=== PATIENT | female | born 1945 | race African-American/Black ===

== ENCOUNTER → 2016-05-07 | Outpatient (CLI) | payer MEDICARE, MEDICAID ==
[2016-05-07 13:25] LABS: BASOPHILS % (AUTO) 1.6 % (0.0-2.0); EOSINOPHILS % (AUTO) 2.1 % (0.0-3.0); LYMPHOCYTES % (AUTO) 25.8 % (20.0-45.0); MEAN CORPUSCULAR HEMOGLOBIN 32.7 PG (27.0-31.0); MEAN CORPUSCULAR HGB CONC 32.3 G/DL (32.0-36.0); MEAN CORPUSCULAR VOLUME 101 FL (80-99); MEAN PLATELET VOLUME 6.7 FL (6.5-10.1); MONOCYTES % (AUTO) 9.9 % (1.0-10.0); NEUTROPHILS % (AUTO) 60.6 % (45.0-75.0); PLATELET COUNT 329 K/UL (150-450); RED BLOOD COUNT 4.22 M/UL (4.20-5.40); RED CELL DISTRIBUTION WIDTH 11.3 % (11.6-14.8); WHITE BLOOD COUNT 4.3 K/UL (4.8-10.8)
[2016-05-07 13:56] LABS: HEMOLYSIS 6; IRON 106 ug/dL (37-145); TOTAL IRON BINDING CAPACITY 294 ug/dL (250-400)
[2016-05-07 13:58] LABS: ALANINE AMINOTRANSFERASE 20 U/L (3-33); ALBUMIN/GLOBULIN RATIO 1.1 (1.0-2.7); ANION GAP 15 (5-15); ASPARTATE AMINO TRANSFERASE 23 U/L (5-40); CALCIUM 9.6 mg/dL (8.6-10.2); CARBON DIOXIDE 25 mEQ/L (20-30); CHLORIDE 101 mEQ/L (98-107); CHOLESTEROL 206 mg/dL (< 200); CHOLESTEROL/HDL RATIO 5.3 (3.3-4.4); CREATININE 0.9 mg/dL (0.5-0.9); CRP QUANT 0.7 mg/dL (< 0.5); GLOMERULAR FILTRATION RATE > 60 mL/min (>60); LDL CHOLESTEROL (CALC.) 135 mg/dL (60-99); POTASSIUM 4.1 mEQ/L (3.4-4.9); SODIUM 141 mEQ/L (135-145); TOTAL PROTEIN 8.1 g/dL (6.6-8.7)
[2016-05-07 14:08] LABS: THYROID STIMULATING HORMONE 0.928 uIU/mL (0.300-4.500)
[2016-05-08 18:10] LABS: ANTI-NUCLEAR ANTIBODY SCREEN Negative (Negative)
[2016-05-09 18:08] LABS: ALDOLASE 5.1 U/L (3.3-10.3)
[2016-05-10 14:09] LABS: VITAMIN D 25-OH TOTAL 14 ng/mL (.)
== END | disposition home or self-care (01) ==
LOC: LAB 12:35
PROVIDERS: ATTEND Internal Medicine Rheumatology
DX: E11.9 Type 2 diabetes mellitus without complications (principal); I10 Essential (primary) hypertension; M25.50 Pain in unspecified joint
CPT/HCPCS: 36415; 80053; 80061; 82085; 82306; 82550; 83036; 83540; 83550; 84443; 85025; 86039; 86140

== ENCOUNTER → 2016-06-25 | Outpatient (CLI) | payer MEDICARE, MEDICAID ==
[2016-06-25 12:34] LABS: BASOPHILS % (AUTO) 2.1 % (0.0-2.0); EOSINOPHILS % (AUTO) 1.5 % (0.0-3.0); LYMPHOCYTES % (AUTO) 25.1 % (20.0-45.0); MEAN CORPUSCULAR HEMOGLOBIN 33.7 PG (27.0-31.0); MEAN CORPUSCULAR HGB CONC 32.7 G/DL (32.0-36.0); MEAN CORPUSCULAR VOLUME 103 FL (80-99); MEAN PLATELET VOLUME 7.3 FL (6.5-10.1); MONOCYTES % (AUTO) 6.9 % (1.0-10.0); NEUTROPHILS % (AUTO) 64.5 % (45.0-75.0); PLATELET COUNT 227 K/UL (150-450); RED BLOOD COUNT 4.23 M/UL (4.20-5.40); RED CELL DISTRIBUTION WIDTH 11.6 % (11.6-14.8); WHITE BLOOD COUNT 4.9 K/UL (4.8-10.8)
[2016-06-25 12:44] LABS: ALANINE AMINOTRANSFERASE 19 U/L (3-33); ALBUMIN/GLOBULIN RATIO 1.2 (1.0-2.7); ANION GAP 18 (5-15); ASPARTATE AMINO TRANSFERASE 20 U/L (5-40); CALCIUM 9.6 mg/dL (8.6-10.2); CARBON DIOXIDE 23 mEQ/L (20-30); CHLORIDE 98 mEQ/L (98-107); CHOLESTEROL 185 mg/dL (< 200); CREATININE 0.8 mg/dL (0.5-0.9); CRP QUANT 0.5 mg/dL (< 0.5); GLOMERULAR FILTRATION RATE > 60 mL/min (>60); LDL CHOLESTEROL (CALC.) 102 mg/dL (60-99); POTASSIUM 4.3 mEQ/L (3.4-4.9); SODIUM 139 mEQ/L (135-145); TOTAL PROTEIN 7.7 g/dL (6.6-8.7)
[2016-06-25 12:45] LABS: HEMOLYSIS 47; IRON 97 ug/dL (37-145); TOTAL IRON BINDING CAPACITY 338 ug/dL (250-400)
[2016-06-25 12:55] LABS: FERRITIN 233 ng/mL (13-150)
[2016-06-25 13:18] LABS: HEMOGLOBIN A1C 4.9 % (< 6.0)
[2016-06-25 13:41] LABS: ERYTHROCYTE SEDIMENTATION RATE 28 MM/HR (0-30)
[2016-06-26 18:14] LABS: ANTI-NUCLEAR ANTIBODY SCREEN Negative (Negative)
[2016-06-30 09:27] LABS: ALDOLASE 6.8 U/L (3.3-10.3); VITAMIN D 25-OH TOTAL 15 ng/mL (.)
== END | disposition home or self-care (01) ==
LOC: LAB 11:27
PROVIDERS: ATTEND Internal Medicine Rheumatology
DX: I95.9 Hypotension, unspecified (principal); J44.9 Chronic obstructive pulmonary disease, unspecified; E11.9 Type 2 diabetes mellitus without complications; M19.90 Unspecified osteoarthritis, unspecified site
CPT/HCPCS: 36415; 80053; 80061; 82085; 82306; 82550; 82728; 83036; 83540; 83550; 84443; 85025; 85651; 86039; 86140

== ENCOUNTER → 2016-07-14 | Outpatient (CLI) | payer MEDICARE, MEDICAID ==
[~2016-07-14] VITALS: Ht 160 cm; Wt 79.4 kg
[~2016-07-14] MED LIST: Adenosine Inj IVP ONE
--- NOTE | 2016-07-14 15:28 | Diagnostic Imaging Report ---
Indications: 70-year-old female inpatient presents with chest pain, coronary artery disease Technique: The examination was supervised by Dr. Kohler. Baseline electrocardiogram was recorded. Adenosine was administered the patient intravenously per usual protocol. Continuous electrocardiography, heart rate, blood pressure monitoring performed. Immediate SPECT imaging of the left ventricular myocardium was performed in multiple planes with the patient in supine position, following intravenous administration of 32.2 mCi 99 M technetium-sestaMIBI. Cinegraphic images were generated for wall motion analysis. Left ventricular ejection fraction was calculated. Imaging at rest performed. Findings: Comparison: None. Stress images demonstrate left ventricular myocardial perfusion to be intact. No areas of abnormally decreased or absent perfusion are demonstrated. Cinegraphic images demonstrate no areas of wall motion abnormality. Ejection fraction is estimated at 65%. The patient developed chest pain and shortness of breath but no acute electrocardiographic changes during adenosine infusion. Supervising senior database engineer's conclusions are that clinical response to pharmacologic stress simulation is ischemic while electrocardiographic response is nonischemic. IMPRESSION: Negative stress-only left ventricular myocardial perfusion scan. This partially correlates with supervising senior database engineer's conclusions.
--- NOTE | 2016-07-15 16:15 | Cardiology Report ---
APPROVED REPORT EXAM: Two-dimensional and M-mode echocardiogram with Doppler and color Doppler. INDICATION CAD M-Mode DIMENSIONS IVSd0.9 (0.7-1.1cm)Left Atrium (MM)3.0 (1.6-4.0cm) LVDd3.7 (3.5-5.6cm)Aortic Root2.3 (2.0-3.7cm) PWd0.7 (0.7-1.1cm)Aortic Cusp Exc.1.6 (1.5-2.0cm) LVDs2.9 (2.5-4.0cm) PWs0.8 cm Technically difficult study due to poor acoustic windows. Normal left ventricular chamber size. Mildl global left ventricular hypokinesis. Thinning and akinesis of mid posterior wall . Mid anterior wall dyskinesis. Left ventricular ejection fraction estimated to be 45-50%. No evidence of left ventricular hypertrophy. No evidence of pericardial fat or effusion. Right cardiac chamber sizes are within normal limits. Mild left atrial enlargement by 2D. Focal aortic valve sclerosis with adequate cusp excursion Thickened mitral valve leaflets with normal excursion. Mild mitral annulus and aortic root calcification. Pulmonic valve not well visualized. Normal tricuspid valve structure. IVC is normal in size with physiologic collapse. A color flow and spectral Doppler study was performed and revealed: No aortic regurgitation. No mitral regurgitation. Left ventricular diastolic dysfunction grade 1. No tricuspid regurgitation. Tricuspid systolic velocities suggests peak right ventricular systolic pressure of 25 mmHg
== END | disposition home or self-care (01) ==
LOC: CAR 09:02
DX: R07.9 Chest pain, unspecified (principal); I25.10 Atherosclerotic heart disease of native coronary artery without angina pectoris
CPT/HCPCS: 78452; 93017; 93306; A4641; J0153

== ENCOUNTER 2016-09-09 13:10 | Outpatient (CLI) | payer MEDICARE, MEDICAID ==
[2016-09-09 13:49] LABS: BASOPHILS % (AUTO) 1.8 % (0.0-2.0); EOSINOPHILS % (AUTO) 1.2 % (0.0-3.0); LYMPHOCYTES % (AUTO) 32.6 % (20.0-45.0); MEAN CORPUSCULAR HEMOGLOBIN 33.7 PG (27.0-31.0); MEAN CORPUSCULAR HGB CONC 33.1 G/DL (32.0-36.0); MEAN CORPUSCULAR VOLUME 102 FL (80-99); MEAN PLATELET VOLUME 6.1 FL (6.5-10.1); MONOCYTES % (AUTO) 9.3 % (1.0-10.0); NEUTROPHILS % (AUTO) 55.1 % (45.0-75.0); PLATELET COUNT 295 K/UL (150-450); RED BLOOD COUNT 4.02 M/UL (4.20-5.40); RED CELL DISTRIBUTION WIDTH 11.2 % (11.6-14.8); WHITE BLOOD COUNT 4.4 K/UL (4.8-10.8)
[2016-09-09 14:01] LABS: ALANINE AMINOTRANSFERASE 20 U/L (3-33); ALBUMIN/GLOBULIN RATIO 1.3 (1.0-2.7); AMYLASE 76 U/L (10-110); ANION GAP 15 (5-15); ASPARTATE AMINO TRANSFERASE 24 U/L (5-40); CALCIUM 9.6 mg/dL (8.6-10.2); CARBON DIOXIDE 23 mEQ/L (20-30); CHLORIDE 100 mEQ/L (98-107); CREATININE 0.8 mg/dL (0.5-0.9); CRP QUANT 0.7 mg/dL (< 0.5); HEMOLYSIS 6; POTASSIUM 3.9 mEQ/L (3.4-4.9); SODIUM 138 mEQ/L (135-145); TOTAL PROTEIN 7.6 g/dL (6.6-8.7)
[2016-09-09 14:59] LABS: ERYTHROCYTE SEDIMENTATION RATE 40 MM/HR (0-30)
== END 2016-09-09 14:10 | disposition home or self-care (01) ==
LOC: LAB 13:10
DX: K57.30 Diverticulosis of large intestine without perforation or abscess without bleeding (principal); R10.13 Epigastric pain; D89.89 Other specified disorders involving the immune mechanism, not elsewhere classified
CPT/HCPCS: 36415; 80053; 82150; 85025; 85651; 86140

== ENCOUNTER → 2016-11-02 | Outpatient (CLI) | payer MEDICARE, MEDICAID ==
--- NOTE | 2016-11-02 12:43 | Diagnostic Imaging Report ---
Indication: Pain Findings: 3 views of the right shoulder were obtained. No acute fractures, malalignment, erosions or periostitis are identified. Bone mineralization is low. Soft tissues are unremarkable. Impression: No acute injury
--- NOTE | 2016-11-02 15:13 | Diagnostic Imaging Report ---
Indication: Neck pain Technique: MRI examination of the cervical spine was performed in a 1.5 Sakina magnet. Sequences obtained include sagittal and axial T1 and T2 fast spin echo, and sagittal STIR. No IV gadolinium was given Comparison: none Findings: There is some motion artifact present. Bone marrow signal is normal. There is no malalignment. No ligamentous abnormalities or soft tissue swelling is identified. No abnormal fluid collections are seen. The spinal cord appears normal. There is no evidence of cord edema or myelomalacia. No Chiari malformation is identified. Narrowing and loss of T2 signal from the central aspects of the intervertebral discs are noted as all of the cervical spine levels from C2-3 through C7-T1. Minimal concentric disc bulges are noted at C3-4, C4-5 and C6-7. Minimal endplate spurs are also noted. No central or neural foraminal stenosis is identified. Impression: Somewhat limited exam due to motion. No evidence of acute injury. Mild degenerative disc disease as described above. No neural impingement, canal or neural foraminal stenosis identified. Normal appearance of the cord.
--- NOTE | 2016-11-02 15:18 | Diagnostic Imaging Report ---
Indication: Right upper arm pain. Technique: The right upper arm (phbbo-sd-mpas included the area of pain which was several centimeters above the elbow to the shoulder) examination was performed in the area of pain in a 1.5 Sakina magnet. Pulse sequences obtained without gadolinium and include coronal and axial T1 fast spin-echo and STIR. Note: Because of patient size, the standard extremity coil could not be used. The torso coil was used instead. This is not optimum as there is diminished aasciw-bm-mtehk ratio and resolution. Comparison: None Findings: The study was limited nature as the patient had severe pain in the arm and could not continue with the examination. As obtained, no bone marrow signal abnormalities are identified. There is the suggestion of a joint effusion within the joint. There is a suggestion of fluid in the subacromial bursa as well. The study was not obtained in such a fashion that rotator cuff pathology could be evaluated or excluded on this exam. If there is clinical concern for this, suggest obtaining MRI of the right shoulder. The subcutaneous fat and the major muscular structures within the upper arm appear unremarkable. Impression: Negative examination area of pain. Incidental subacromial and glenohumeral fluid. This is not adequately evaluated on the current exam. Further evaluation with an MRI of the right shoulder could be obtained as warranted clinically.
== END | disposition home or self-care (01) ==
LOC: MRI 09:58
DX: M79.621 Pain in right upper arm (principal); M25.511 Pain in right shoulder; M50.30 Other cervical disc degeneration, unspecified cervical region; G62.9 Polyneuropathy, unspecified
CPT/HCPCS: 72141

== ENCOUNTER → 2017-01-08 | Outpatient (CLI) | payer MEDICARE, MEDICAID ==
[2017-01-08 12:26] LABS: EOSINOPHILS % (AUTO) 1.9 % (0.0-3.0); LYMPHOCYTES % (AUTO) 27.6 % (20.0-45.0); MEAN CORPUSCULAR HEMOGLOBIN 33.5 PG (27.0-31.0); MEAN CORPUSCULAR HGB CONC 32.6 G/DL (32.0-36.0); MEAN CORPUSCULAR VOLUME 103 FL (80-99); MEAN PLATELET VOLUME 6.1 FL (6.5-10.1); MONOCYTES % (AUTO) 10.3 % (1.0-10.0); NEUTROPHILS % (AUTO) 59.2 % (45.0-75.0); PLATELET COUNT 273 K/UL (150-450); RED BLOOD COUNT 4.34 M/UL (4.20-5.40); RED CELL DISTRIBUTION WIDTH 10.9 % (11.6-14.8); WHITE BLOOD COUNT 4.9 K/UL (4.8-10.8)
[2017-01-08 13:16] LABS: ALANINE AMINOTRANSFERASE 17 U/L (3-33); ALBUMIN/GLOBULIN RATIO 1.3 (1.0-2.7); ANION GAP 13 (5-15); ASPARTATE AMINO TRANSFERASE 22 U/L (5-40); CALCIUM 9.5 mg/dL (8.6-10.2); CARBON DIOXIDE 27 mEQ/L (20-30); CHLORIDE 102 mEQ/L (98-107); CREATININE 0.7 mg/dL (0.5-0.9); HEMOLYSIS 48; POTASSIUM 4.5 mEQ/L (3.4-4.9); SODIUM 142 mEQ/L (135-145); TOTAL PROTEIN 7.4 g/dL (6.6-8.7)
--- NOTE | 2017-01-08 16:34 | Diagnostic Imaging Report ---
Clinical Indication: SOB, cough Technique: Spiral acquisitions obtained through the chest. No IV contrast utilized, per referring physician request. Multiplanar reconstructions generated. Total dose length product 766 mGycm. CTDIvol(s) 23 mGy. Dose reduction achieved using automated exposure control Comparison: None Findings:Lungs and pleural spaces are clear. The proximal airways are clear. The heart size is normal. No effusion. No mediastinal or hilar mass or adenopathy. The included portions of the thyroid demonstrates homogeneous thyromegaly, with an upper pole calcification on the left. No axillary or chest wall mass or adenopathy. The esophagus is unremarkable. The bones are unremarkable except for mild degenerative spondylosis. The included upper abdominal anatomy is remarkable for the presence of a cyst in segment 2 of the liver. There is a subcentimeter low-attenuation lesion also seen in segment 2 which is too small to characterize. These are both evident on a prior on 10/06/14 CT scan. There are cholecystectomy clips. The pancreas is somewhat fatty replaced and atrophic. Impression: No acute pulmonary or pleural process Thyromegaly, nonspecific. Calcification noted in the upper pole Incidental abdominal findings of pancreatic atrophy, prior cholecystectomy, liver cysts The CT scanner at [facility] is accredited by the [employer] and the scans are performed using protocols designed to limit radiation exposure to as low as reasonably achievable to attain images of sufficient resolution adequate for diagnostic evaluation.
[2017-01-11 15:09] LABS: ANTI-NUCLEAR ANTIBODY SCREEN Negative (Negative)
[2017-01-11 18:20] LABS: VITAMIN D 25-OH TOTAL 16 ng/mL (.)
== END | disposition home or self-care (01) ==
LOC: LAB 11:31
DX: G62.9 Polyneuropathy, unspecified (principal); R06.02 Shortness of breath; R05 Cough; R06.2 Wheezing; E01.0 Iodine-deficiency related diffuse (endemic) goiter; Z90.49 Acquired absence of other specified parts of digestive tract; K76.89 Other specified diseases of liver; K86.89 Other specified diseases of pancreas
CPT/HCPCS: 36415; 71250; 80053; 82306; 82607; 84443; 85025; 86039; 86592

== ENCOUNTER 2017-03-22 10:07 | Outpatient (CLI) | payer MEDICARE, MEDICAID ==
--- NOTE | 2017-03-22 12:18 | Diagnostic Imaging Report ---
Indication: Abdominal pain, nausea Technique: Camilo-scale and duplex images of the upper abdomen were obtained Comparison: 09/17/2014 Findings: Gallbladder is surgically absent. Common bile duct measures 11 mm in diameter, previously 9. No intrahepatic biliary ductal dilatation. Liver demonstrates diffusely increased echogenicity, consistent with diffuse hepatocellular disease, most likely fatty change. Portal vein and hepatic veins are patent. Pancreas is unremarkable. Spleen is unremarkable. Left kidney measures 9.7 cm in length. Right kidney measures 9 cm length. Both kidneys demonstrate normal echogenicity. There is no hydronephrosis. No focal abnormality . Non-aneurysmal abdominal aorta . No other significant interim change Impression: Status post cholecystectomy. Ectatic common bile duct, slightly increased in caliber from prior 2015 exam, most likely related to age and postcholecystectomy state. Downstream obstruction not completely excludable, however, and correlation with liver function tests is recommended Liver demonstrates diffusely increased echogenicity, consistent with diffuse hepatocellular disease, most likely fatty change.
== END 2017-03-22 12:07 | disposition home or self-care (01) ==
LOC: ULS 10:07
DX: R10.9 Unspecified abdominal pain (principal); R11.0 Nausea; Z90.49 Acquired absence of other specified parts of digestive tract
CPT/HCPCS: 76700

== ENCOUNTER 2017-04-21 15:50 | Outpatient (CLI) | payer MEDICARE, MEDICAID ==
[2017-04-21 16:23] LABS: BASOPHILS % (AUTO) 1.4 % (0.0-2.0); EOSINOPHILS % (AUTO) 0.7 % (0.0-3.0); HEMATOCRIT 48.4 % (37.0-47.0); LYMPHOCYTES % (AUTO) 29.8 % (20.0-45.0); MEAN CORPUSCULAR VOLUME 103 FL (80-99); MONOCYTES % (AUTO) 7.9 % (1.0-10.0); NEUTROPHILS % (AUTO) 60.1 % (45.0-75.0); PLATELET COUNT 283 K/UL (150-450); RED BLOOD COUNT 4.72 M/UL (4.20-5.40); RED CELL DISTRIBUTION WIDTH 11.2 % (11.6-14.8); WHITE BLOOD COUNT 5.8 K/UL (4.8-10.8)
[2017-04-21 16:48] LABS: ALANINE AMINOTRANSFERASE 24 U/L (12-78); ALBUMIN 4.1 G/DL (3.4-5.0); ALBUMIN/GLOBULIN RATIO 0.9 (1.0-2.7); ALKALINE PHOSPHATASE 111 U/L (46-116); ANION GAP 9 mmol/L (5-15); ASPARTATE AMINO TRANSFERASE 23 U/L (15-37); BILIRUBIN,TOTAL 0.9 MG/DL (0.2-1.0); BLOOD UREA NITROGEN 19 mg/dL (7-18); CALCIUM 8.7 MG/DL (8.5-10.1); CARBON DIOXIDE 24 MMOL/L (21-32); CHLORIDE 110 MMOL/L (98-107); CHOLESTEROL 214 MG/DL (< 200); CREATININE 0.9 MG/DL (0.55-1.30); HDL CHOLESTEROL 50 MG/DL (40-60); POTASSIUM 3.8 MMOL/L (3.5-5.1); SODIUM 143 MMOL/L (136-145); TRIGLYCERIDES 180 MG/DL (30-150)
== END 2017-04-21 17:50 | disposition home or self-care (01) ==
LOC: LAB 15:50
DX: E11.9 Type 2 diabetes mellitus without complications (principal); I10 Essential (primary) hypertension
CPT/HCPCS: 36415; 80053; 80061; 83036; 84443; 85025; 86850; 86900; 86901

== ENCOUNTER 2017-06-01 12:45 | Outpatient (CLI) | payer MEDICARE, MEDICAID ==
--- NOTE | 2017-06-01 16:03 | Diagnostic Imaging Report ---
Indication: Neck pain. Technique: Continuous helical imaging of the neck was obtained transaxially from the skull base to the upper thoracic spine. 2-D coronal and sagittal reformatted images were obtained. Total Dose length Product (DLP): 562.[address] Dose Index Volume (CTDIvol): 18.96 mGy Comparison: None Findings: The thyroid gland is homogeneous and relatively symmetric in appearance measuring about 4.3 x 3.4 x 2.1 cm on the right and measuring 4.5 x 1.8 x 3.4 cm on the left. No mass or nodules identified. No adenopathy seen in the neck. The pharyngeal mucosal structures are unremarkable. Skull base is unremarkable. There is some degenerative disc disease within the cervical spine with narrowing of the disks and endplate, uncovertebral and facet hypertrophy noted. IMPRESSION: Unremarkable CT of the thyroid gland. Mild cervical spondylosis as described The CT scanner at [facility] is accredited by the [employer] and the scans are performed using dose optimization techniques as appropriate to a performed exam including Automatic Exposure control.
== END 2017-06-01 14:45 | disposition home or self-care (01) ==
LOC: RAD 12:45
DX: M54.2 Cervicalgia (principal); M47.892 Other spondylosis, cervical region
CPT/HCPCS: 70490

== ENCOUNTER → 2017-07-15 | Outpatient (CLI) | payer MEDICARE, MEDICAID ==
[2017-07-15 12:45] LABS: BASOPHILS % (AUTO) 1.8 % (0.0-2.0); EOSINOPHILS % (AUTO) 1.6 % (0.0-3.0); MEAN CORPUSCULAR VOLUME 102 FL (80-99); MONOCYTES % (AUTO) 8.4 % (1.0-10.0); NEUTROPHILS % (AUTO) 54.2 % (45.0-75.0); PLATELET COUNT 270 K/UL (150-450); WHITE BLOOD COUNT 3.5 K/UL (4.8-10.8)
[2017-07-15 13:00] LABS: ALANINE AMINOTRANSFERASE 19 U/L (12-78); ALBUMIN 3.6 G/DL (3.4-5.0); ALBUMIN/GLOBULIN RATIO 0.9 (1.0-2.7); ALKALINE PHOSPHATASE 101 U/L (46-116); ANION GAP 8 mmol/L (5-15); ASPARTATE AMINO TRANSFERASE 20 U/L (15-37); BILIRUBIN,TOTAL 0.5 MG/DL (0.2-1.0); BLOOD UREA NITROGEN 19 mg/dL (7-18); CALCIUM 8.7 MG/DL (8.5-10.1); CARBON DIOXIDE 25 MMOL/L (21-32); CHLORIDE 110 MMOL/L (98-107); CHOLESTEROL 198 MG/DL (< 200); CREATININE 0.9 MG/DL (0.55-1.30); HDL CHOLESTEROL 44 MG/DL (40-60); POTASSIUM 4.3 MMOL/L (3.5-5.1); SODIUM 143 MMOL/L (136-145); TRIGLYCERIDES 117 MG/DL (30-150)
== END | disposition home or self-care (01) ==
LOC: LAB 11:26
DX: E11.9 Type 2 diabetes mellitus without complications (principal); I10 Essential (primary) hypertension
CPT/HCPCS: 36415; 80053; 80061; 83036; 85025

== ENCOUNTER 2017-09-21 10:56 | Outpatient (CLI) | payer MEDICARE, MEDICAID ==
[2017-09-21 11:29] LABS: HEMATOCRIT 43.5 % (37.0-47.0); HEMOGLOBIN 14.4 G/DL (12.0-16.0); MEAN CORPUSCULAR VOLUME 101 FL (80-99); PLATELET COUNT 280 K/UL (150-450); RED BLOOD COUNT 4.29 M/UL (4.20-5.40); WHITE BLOOD COUNT 3.4 K/UL (4.8-10.8)
[2017-09-21 11:48] LABS: ANION GAP 9 mmol/L (5-15); CARBON DIOXIDE 26 MMOL/L (21-32); CHLORIDE 107 MMOL/L (98-107); SODIUM 142 MMOL/L (136-145)
[2017-09-21 12:00] LABS: ALANINE AMINOTRANSFERASE 25 U/L (12-78); ALBUMIN/GLOBULIN RATIO 0.9 (1.0-2.7); ALKALINE PHOSPHATASE 104 U/L (46-116); ASPARTATE AMINO TRANSFERASE 17 U/L (15-37); BILIRUBIN,TOTAL 0.6 MG/DL (0.2-1.0); BLOOD UREA NITROGEN 13 mg/dL (7-18); CALCIUM 9.5 MG/DL (8.5-10.1); CHOLESTEROL 207 MG/DL (< 200); CREATININE 0.9 MG/DL (0.55-1.30); HDL CHOLESTEROL 43 MG/DL (40-60); TRIGLYCERIDES 80 MG/DL (30-150)
== END 2017-09-21 12:56 | disposition home or self-care (01) ==
LOC: LAB 10:56
DX: E11.9 Type 2 diabetes mellitus without complications (principal)
CPT/HCPCS: 36415; 80053; 80061; 85007; 85025

== ENCOUNTER 2017-11-11 12:10 | Outpatient (CLI) | payer MEDICARE, MEDICAID | END 2017-11-11 14:10 | disposition home or self-care (01) | LOC: MRI 12:10 | DX: R68.84 Jaw pain (principal) | CPT/HCPCS: 70336 ==

== ENCOUNTER → 2017-11-30 | Outpatient (CLI) | payer MEDICARE, MEDICAID ==
[2017-11-30 14:33] LABS: BASOPHILS % (AUTO) 1.6 % (0.0-2.0); EOSINOPHILS % (AUTO) 1.6 % (0.0-3.0); HEMATOCRIT 44.4 % (37.0-47.0); HEMOGLOBIN 14.9 G/DL (12.0-16.0); LYMPHOCYTES % (AUTO) 30.5 % (20.0-45.0); MEAN CORPUSCULAR VOLUME 101 FL (80-99); MONOCYTES % (AUTO) 5.7 % (1.0-10.0); NEUTROPHILS % (AUTO) 60.6 % (45.0-75.0); PLATELET COUNT 271 K/UL (150-450); RED BLOOD COUNT 4.42 M/UL (4.20-5.40); WHITE BLOOD COUNT 4.3 K/UL (4.8-10.8)
[2017-11-30 14:54] LABS: ALANINE AMINOTRANSFERASE 24 U/L (12-78); ALBUMIN 3.7 G/DL (3.4-5.0); ALBUMIN/GLOBULIN RATIO 0.9 (1.0-2.7); ALKALINE PHOSPHATASE 115 U/L (46-116); ANION GAP 8 mmol/L (5-15); ASPARTATE AMINO TRANSFERASE 23 U/L (15-37); BILIRUBIN,TOTAL 0.8 MG/DL (0.2-1.0); BLOOD UREA NITROGEN 15 mg/dL (7-18); CALCIUM 9.3 MG/DL (8.5-10.1); CARBON DIOXIDE 25 MMOL/L (21-32); CHLORIDE 107 MMOL/L (98-107); CREATININE 0.8 MG/DL (0.55-1.30); POTASSIUM 4.1 MMOL/L (3.5-5.1); SODIUM 140 MMOL/L (136-145)
== END | disposition home or self-care (01) ==
LOC: LAB 14:00
DX: K57.30 Diverticulosis of large intestine without perforation or abscess without bleeding (principal); K59.01 Slow transit constipation
CPT/HCPCS: 36415; 80053; 84443; 85025

== ENCOUNTER 2017-12-15 12:37 | Outpatient (CLI) | payer MEDICARE, MEDICAID ==
[2017-12-15 13:07] LABS: BASOPHILS % (AUTO) 1.3 % (0.0-2.0); EOSINOPHILS % (AUTO) 1.5 % (0.0-3.0); HEMATOCRIT 43.9 % (37.0-47.0); HEMOGLOBIN 14.3 G/DL (12.0-16.0); LYMPHOCYTES % (AUTO) 37.5 % (20.0-45.0); MEAN CORPUSCULAR VOLUME 100 FL (80-99); MONOCYTES % (AUTO) 7.2 % (1.0-10.0); NEUTROPHILS % (AUTO) 52.6 % (45.0-75.0); PLATELET COUNT 280 K/UL (150-450); RED BLOOD COUNT 4.38 M/UL (4.20-5.40); RED CELL DISTRIBUTION WIDTH 11.2 % (11.6-14.8); WHITE BLOOD COUNT 3.7 K/UL (4.8-10.8)
[2017-12-15 13:13] LABS: APPEARANCE,URINE CLEAR; BILIRUBIN, URINE NEGATIVE (NEGATIVE); GLUCOSE, URINE (UA) NEGATIVE (NEGATIVE); KETONES,URINE NEGATIVE (NEGATIVE); LEUKOCYTE ESTERASE ,URINE NEGATIVE (NEGATIVE); NITRITE,URINE NEGATIVE (NEGATIVE); PH,URINE 5 (4.5-8.0); PROTEIN,URINE NEGATIVE (NEGATIVE); UROBILINOGEN,URINE 1 MG/DL (0.0-1.0)
[2017-12-15 13:15] LABS: COLOR,URINE YELLOW
[2017-12-15 13:45] LABS: ALANINE AMINOTRANSFERASE 26 U/L (12-78); ALBUMIN 3.9 G/DL (3.4-5.0); ALBUMIN/GLOBULIN RATIO 0.9 (1.0-2.7); ALKALINE PHOSPHATASE 114 U/L (46-116); ANION GAP 8 mmol/L (5-15); ASPARTATE AMINO TRANSFERASE 19 U/L (15-37); BILIRUBIN,TOTAL 1.1 MG/DL (0.2-1.0); BLOOD UREA NITROGEN 16 mg/dL (7-18); CALCIUM 9.4 MG/DL (8.5-10.1); CARBON DIOXIDE 27 MMOL/L (21-32); CHLORIDE 106 MMOL/L (98-107); CHOLESTEROL 230 MG/DL (< 200); CREATININE 0.8 MG/DL (0.55-1.30); HDL CHOLESTEROL 50 MG/DL (40-60); POTASSIUM 4.1 MMOL/L (3.5-5.1); SODIUM 141 MMOL/L (136-145); TRIGLYCERIDES 92 MG/DL (30-150)
[2017-12-15 13:50] LABS: BILIRUBIN,DIRECT 0.2 MG/DL (0.0-0.3)
--- NOTE | 2017-12-15 14:29 | Diagnostic Imaging Report ---
Indication: Neck mass Technique: Continuous helical imaging of the neck was obtained transaxially from the skull base to the upper thoracic spine. 2-D coronal and sagittal reformatted images were obtained. Total Dose length Product (DLP): 576.[address] Dose Index Volume (CTDIvol): 19.51 mGy Comparison: June 01, 2017 Findings: There is no mass identified. Few nodes demonstrated within the neck nonspecific. These are likely normal nodes and measure in the order of 2 to 5 mm in size. The epiglottis and aryepiglottic folds appear normal. Visualized nasopharynx is unremarkable. The parapharyngeal fat appears symmetric. The uvula is unremarkable. The larynx and subglottic airway appear normal. The thyroid gland appears relatively homogeneous. There is no supraclavicular adenopathy. Visualized part of the esophagus grossly unremarkable. Mild endplate spurs and narrowing of intervertebral discs noted within the cervical spine at multiple levels. IMPRESSION: No mass identified. Mild cervical spondylosis The CT scanner at [facility] is accredited by the [employer] and the scans are performed using dose optimization techniques as appropriate to a performed exam including Automatic Exposure control.
== END 2017-12-15 14:37 | disposition home or self-care (01) ==
LOC: LAB 12:37
DX: R22.1 Localized swelling, mass and lump, neck (principal); M47.892 Other spondylosis, cervical region
CPT/HCPCS: 36415; 70490; 80053; 80061; 81003; 82248; 82652; 84436; 84443; 84481; 85025

== ENCOUNTER → 2018-01-24 | Outpatient (CLI) | payer MEDICARE, MEDICAID | END | disposition home or self-care (01) | LOC: LAB 11:32 | DX: E11.9 Type 2 diabetes mellitus without complications (principal) | CPT/HCPCS: 36415; 83036 ==

== ENCOUNTER → 2018-02-24 | Outpatient (CLI) | payer MEDICARE, MEDICAID ==
[2018-02-24 14:25] LABS: BASOPHILS % (AUTO) 1.3 % (0.0-2.0); EOSINOPHILS % (AUTO) 1.7 % (0.0-3.0); HEMATOCRIT 40.2 % (37.0-47.0); HEMOGLOBIN 13.6 G/DL (12.0-16.0); LYMPHOCYTES % (AUTO) 32.8 % (20.0-45.0); MEAN CORPUSCULAR VOLUME 99 FL (80-99); MONOCYTES % (AUTO) 8.9 % (1.0-10.0); NEUTROPHILS % (AUTO) 55.2 % (45.0-75.0); PLATELET COUNT 312 K/UL (150-450); RED BLOOD COUNT 4.08 M/UL (4.20-5.40); WHITE BLOOD COUNT 4.3 K/UL (4.8-10.8)
[2018-02-24 15:01] LABS: ALANINE AMINOTRANSFERASE 20 U/L (12-78); ALBUMIN 3.6 G/DL (3.4-5.0); ALBUMIN/GLOBULIN RATIO 0.7 (1.0-2.7); ALKALINE PHOSPHATASE 124 U/L (46-116); ANION GAP 8 mmol/L (5-15); ASPARTATE AMINO TRANSFERASE 19 U/L (15-37); BILIRUBIN,TOTAL 0.7 MG/DL (0.2-1.0); BLOOD UREA NITROGEN 12 mg/dL (7-18); CALCIUM 9.1 MG/DL (8.5-10.1); CARBON DIOXIDE 27 MMOL/L (21-32); CHLORIDE 108 MMOL/L (98-107); CHOLESTEROL 191 MG/DL (< 200); CREATININE 0.9 MG/DL (0.55-1.30); HDL CHOLESTEROL 44 MG/DL (40-60); POTASSIUM 3.6 MMOL/L (3.5-5.1); SODIUM 143 MMOL/L (136-145); TRIGLYCERIDES 164 MG/DL (30-150)
== END | disposition home or self-care (01) ==
LOC: LAB 13:48
DX: I10 Essential (primary) hypertension (principal)
CPT/HCPCS: 36415; 80053; 80061; 82306; 84443; 85025

== ENCOUNTER 2018-06-26 20:19 | Emergency (ER) | payer MEDICARE, MEDICAID ==
[~2018-06-26] VITALS: Ht 160 cm; Wt 75.3 kg
--- NOTE | 2018-06-26 20:25 | NUR ---
ED Nurse Note: PAtient presents with complaints of abdominal pain 10/10 x 2 months with acute onset of diarhea, vomiting x 1 day.
[2018-06-26 20:30] VITALS: BP 138/83
[2018-06-26] MEDS ORDERED: Morphine Sulfate 4mg/ml Inj (IV USE ONLY) IVP ONE (21:00)
--- NOTE | 2018-06-26 21:00 | NUR ---
ED Nurse Note: Unable to start peripheral line. ERMD stared left IJ 18G line.
--- NOTE | 2018-06-26 21:14 | Emergency Room Report ---
History of Present Illness General Chief Complaint: Flu Like Symptoms Source: Patient Present Illness HPI This is a 72-year-old female with a history of diabetes high blood pressure and diverticulitis. She presents with chief point abdominal pain with nausea vomiting and diarrhea. She has recurrent abdominal pain but most recent episode was today. She has multivessel vomiting nonbloody nonbilious. She has watery diarrhea with some blood in it. She also has pain to the lower quadrant mostly in the left side. Pain is 8 out of 10. Has subjective chills. Denies any other complaint. Nothing made it better. Eating or drinking made it worse. Allergies: Coded Allergies: HALOPERIDOL (Verified Allergy, Unknown, 06/26/18) LIDOCAINE (Verified Allergy, Unknown, 07/04/08) NITROGLYCERIN (Verified Allergy, Unknown, 07/04/08) Patient History Past Medical History: see triage record, old chart reviewed, DM, HTN Past Surgical History: other Pertinent Family History: none Social History: Denies: smoking Last Menstrual Period: WARREN Now: No Immunizations: other Reviewed Nursing Documentation: PMH: Agreed; PSxH: Agreed Nursing Documentation-PMH Past Medical History: No History, Except For Hx Hypertension: Yes - neuropathy, diverticulitis, ulcerative colitis Hx Diabetes: Yes Review of Systems Eye: Denies: eye pain, blurred vision ENT: Denies: ear pain, nose congestion, throat swelling Respiratory: Denies: cough, shortness of breath Cardiovascular: Denies: chest pain, palpitations Gastrointestinal: Reports: abdominal pain, diarrhea, nausea, vomiting Musculoskeletal: Denies: back pain, joint pain Skin: Denies: rash Neurological: Denies: headache, numbness Endocrine: Denies: increased thirst, increased urine Hematologic/Lymphatic: Denies: easy bruising All Other Systems: negative except mentioned in HPI Physical Exam Vital Signs Date Time Temp Pulse Resp B/P (MAP) Pulse Ox O2 Delivery O2 Flow Rate FiO2 06/26/18 20:21 97.5 90 20 138/83 97 Room Air vitals normal Sp02 EP Interpretation: reviewed, normal General Appearance: well appearing, no apparent distress, alert Head: normocephalic, atraumatic Eyes: bilateral eye PERRL, bilateral eye EOMI ENT: hearing grossly normal, normal pharynx Neck: full range of motion, supple, no meningismus Respiratory: chest non-tender, lungs clear, normal breath sounds Cardiovascular #1: regular rate, rhythm, no murmur Gastrointestinal: normal bowel sounds, no mass, no organomegaly, no bruit, non- distended, tenderness - Lower quadrants, mostly left lower Musculoskeletal: back normal, gait/station normal, normal range of motion Psychiatric: mood/affect normal Skin: warm/dry Medical Decision Making Diagnostic Impression: Primary Impression: Diverticulitis ER Course Patient with abdominal pain and has diverticulitis. Tolerate by mouth here. No evidence of any perforation or sepsis. We'll discharge home. CT/MRI/US Diagnostic Results CT/MRI/US Diagnostic Results : Imaging Test Ordered: CT abdomen and pelvis Impression Read by radiologist. Extensive colonic diverticulosis. Sigmoid diverticulitis. Last Vital Signs Date Time Temp Pulse Resp B/P (MAP) Pulse Ox O2 Delivery O2 Flow Rate FiO2 06/26/18 20:21 97.5 90 20 138/83 97 Room Air Status: improved Disposition: HOME, SELF-CARE Condition: Stable Scripts Hydrocodone/Acetaminophen 5-325* (HYDROCODONE/ACETAMINOPHEN 5-325*) 1 Each Tablet 1 TAB ORAL Q6H PRN for For Pain, #15 TAB 0 Refills Prov: Demetri Yan MD 06/26/18 Metronidazole* (FLAGYL*) 500 Mg Tablet 500 MG ORAL BID, #14 TAB Prov: Demetri Yan MD 06/26/18 Ciprofloxacin Hcl* (CIPROFLOXACIN HCL*) 500 Mg Tablet 500 MG ORAL Q12H, #14 TAB 0 Refills Prov: Demetri Yan MD 06/26/18 Additional Instructions: Follow-up with your Dr. in 2 to 3 days. Return if symptom worsen. Demetri Yan MD Jun 26, 2018 21:14
--- NOTE | 2018-06-26 21:25 | NUR ---
ED Nurse Note: Patient went down for abdominal CT.
[2018-06-26 21:49] LABS: HEMATOCRIT 42.5 % (37.0-47.0); HEMOGLOBIN 14.1 G/DL (12.0-16.0); MEAN CORPUSCULAR VOLUME 101 FL (80-99); PLATELET COUNT 297 K/UL (150-450); RED BLOOD COUNT 4.22 M/UL (4.20-5.40); RED CELL DISTRIBUTION WIDTH 11.2 % (11.6-14.8); WHITE BLOOD COUNT 11.5 K/UL (4.8-10.8)
[2018-06-26 21:59] LABS: ALANINE AMINOTRANSFERASE 24 U/L (12-78); ALKALINE PHOSPHATASE 113 U/L (46-116); ASPARTATE AMINO TRANSFERASE 19 U/L (15-37); BILIRUBIN,TOTAL 0.6 MG/DL (0.2-1.0); BLOOD UREA NITROGEN 18 mg/dL (7-18); CALCIUM 9.6 MG/DL (8.5-10.1); CHLORIDE 105 MMOL/L (98-107); CREATININE 0.9 MG/DL (0.55-1.30); POTASSIUM 3.8 MMOL/L (3.5-5.1); SODIUM 140 MMOL/L (136-145)
[2018-06-26 22:00] LABS: CARBON DIOXIDE > 45 MMOL/L (21-32)
--- NOTE | 2018-06-26 22:00 | NUR ---
ED Nurse Note: Patient returned from CT Iv fluids resumed.
[2018-06-26] MEDS ORDERED: Ciprofloxacin 500mg tab ORAL ONE (22:15)
[2018-06-26 22:32] LABS: APPEARANCE,URINE SLIGHTLY CLOUDY; BILIRUBIN, URINE NEGATIVE (NEGATIVE); COLOR,URINE PALE YELLOW; GLUCOSE, URINE (UA) NEGATIVE (NEGATIVE); KETONES,URINE 1+ (NEGATIVE); LEUKOCYTE ESTERASE ,URINE 1+ (NEGATIVE); NITRITE,URINE NEGATIVE (NEGATIVE); PH,URINE 7 (4.5-8.0); PROTEIN,URINE NEGATIVE (NEGATIVE); UROBILINOGEN,URINE 1 MG/DL (0.0-1.0)
[2018-06-26 23:00] LABS: ANION GAP 10 mmol/L (5-15); BLOOD UREA NITROGEN 17 mg/dL (7-18); CALCIUM 10.2 MG/DL (8.5-10.1); CARBON DIOXIDE 27 MMOL/L (21-32); CHLORIDE 103 MMOL/L (98-107); POTASSIUM 3.9 MMOL/L (3.5-5.1); SODIUM 140 MMOL/L (136-145)
[2018-06-26] MEDS ORDERED: HYDROCODON-ACE1 EA15 ORAL (23:15)
[2018-06-26] MEDS ORDERED: CIPROFLOXACIN500 M2 ORAL (23:15)
[2018-06-26] MEDS ORDERED: METRONIDAZOLE500 MG ORAL (23:15)
--- NOTE | 2018-06-26 23:22 | NUR ---
ED Nurse Note: Patient cleared for discharge. Patient is a&Ox4, no s/s of acute distress, no complaints of pain. IV removed, ID band removed. Patient departed with all belongings, accompanied by sister. Patient verbalized understanding of discharge instructions.
[2018-06-26 23:33] VITALS: BP 138/83
--- NOTE | 2018-06-27 08:47 | Diagnostic Imaging Report ---
Indication: Abdominal pain, nausea, vomiting, diarrhea Technique: Spiral acquisitions obtained through the abdomen and pelvis. No oral contrast utilized, per emergency room physician request No IV contrast utilized, per referring physician request.. Multiplanar reconstructions were generated. Total dose length product 882.98 mGycm. CTDIvol(s) 19.07 mGy. Dose reduction achieved using automated exposure control Comparison: 03/22/2015 Findings: There is colonic diverticulosis. There is wall thickening of the mid sigmoid, but no definite pericolonic inflammation. What may be a patulous appendix is demonstrated; no findings to suggest acute appendicitis are evident. No small bowel distention. Tiny fat-containing ventral hernias are noted. The distal esophagus, stomach, duodenum are unremarkable. No free or loculated intraperitoneal gas or fluid is evident. Lack of IV contrast limits assessment of the solid organs. Liver demonstrates a stable cyst in segment 2. The gallbladder is surgically absent. No biliary ductal dilatation. The pancreas is somewhat fatty replaced, otherwise unremarkable. The spleen, adrenals, kidneys are unremarkable. No retroperitoneal or mesenteric mass or adenopathy. The uterus is surgically absent. No pelvic mass or adenopathy. A lower abdominal pelvic midline incisional scar is again noted. 3 mm subpleural nodule is again demonstrated in the visualized right middle lobe, unchanged. The included lung bases are otherwise clear.. The bones demonstrate minimal degenerative spondylosis changes. Impression: Colonic diverticulosis. Sigmoid wall thickening probably reflects circular muscle hypertrophy but could indicate very early diverticulitis changes. There are equivocal minimal adjacent inflammatory changes. Correlate with clinical findings No other acute abnormality demonstrated. Stable 3 mm subpleural right middle lobe nodule, unchanged. Presumably benign. No further follow-up necessary Other findings as noted, including degenerative spondylosis, small fat-containing ventral hernias, left lobe liver cyst This agrees with the preliminary interpretation provided overnight by [facility]. The CT scanner at [facility] is accredited by the [employer] and the scans are performed using protocols designed to limit radiation exposure to as low as reasonably achievable to attain images of sufficient resolution adequate for diagnostic evaluation.
== END 2018-06-26 23:35 | disposition home or self-care (01) ==
LOC: EDBD 20:19 → EMR 21:06
DX: K57.32 Diverticulitis of large intestine without perforation or abscess without bleeding (principal); I10 Essential (primary) hypertension; E11.9 Type 2 diabetes mellitus without complications; Z88.5 Allergy status to narcotic agent; Z88.8 Allergy status to other drugs, medicaments and biological substances
CPT/HCPCS: 36415; 74176; 80048; 80053; 81003; 82962; 83690; 85025; 96361; 96365; 96375; 99284; J2270; J2405

== ENCOUNTER 2018-11-20 23:20 | Emergency (ER) | payer MEDICARE, MEDICAID ==
[~2018-11-20] VITALS: Ht 160 cm; Wt 77.1 kg
[~2018-11-20 23:20] MED LIST changes: -Adenosine Inj IVP ONE; +CIPROFLOXACIN500 M2 ORAL; +HYDROCODON-ACE1 EA15 ORAL; +METRONIDAZOLE500 MG ORAL
[2018-11-20 23:40] VITALS: BP 184/79
--- NOTE | 2018-11-20 23:40 | NUR ---
ER Nurse Note: Pt from home c/o R leg and ankle pain worsening for one week. No trauma; pt able to move leg and ankle with difficulty. Cap refill less than 3 secs. Pt stated she cannot put weight on her leg; pain 8/10 with movement. Will continue to montior.
--- NOTE | 2018-11-20 23:41 | Emergency Room Report ---
History of Present Illness General Chief Complaint: Pain Source: Patient Present Illness HPI This is a 73-year-old female with a history of diabetes and CVA pain. Onset for a week. No trauma. Most of the pain is to the calf and the thigh area. Worse in the last few days. Worse with palpation. Better with rest. Pain is 8 out of 10. No fever or chills. Allergies: Coded Allergies: HALOPERIDOL (Verified Allergy, Unknown, 06/26/18) LIDOCAINE (Verified Allergy, Unknown, 07/04/08) NITROGLYCERIN (Verified Allergy, Unknown, 07/04/08) Patient History Past Medical History: see triage record, old chart reviewed, DM, HTN, CVA/TIA Past Surgical History: other Pertinent Family History: none Social History: Denies: smoking Now: No Immunizations: other Reviewed Nursing Documentation: PMH: Agreed; PSxH: Agreed Nursing Documentation-PMH Hx Hypertension: Yes Hx Diabetes: Yes Hx Cerebrovascular Accident: Yes Hx Seizures: Yes - Last 2011 Review of Systems Eye: Denies: eye pain, blurred vision ENT: Denies: ear pain, nose congestion, throat swelling Respiratory: Denies: cough, shortness of breath Cardiovascular: Denies: chest pain, palpitations Gastrointestinal: Denies: abdominal pain, diarrhea, nausea, vomiting Musculoskeletal: Reports: muscle pain; Denies: back pain, joint pain Skin: Denies: rash Neurological: Denies: headache, numbness Endocrine: Denies: increased thirst, increased urine Hematologic/Lymphatic: Denies: easy bruising All Other Systems: negative except mentioned in HPI Physical Exam Vital Signs Date Time Temp Pulse Resp B/P (MAP) Pulse Ox O2 Delivery O2 Flow Rate FiO2 11/20/18 23:27 98.8 87 16 184/79 (114) 98 Room Air Vitals with high blood pressure Sp02 EP Interpretation: reviewed, normal General Appearance: well appearing, no apparent distress, alert Head: normocephalic, atraumatic Eyes: bilateral eye PERRL, bilateral eye EOMI ENT: hearing grossly normal, normal pharynx Neck: full range of motion, supple, no meningismus Respiratory: chest non-tender, lungs clear, normal breath sounds Cardiovascular #1: regular rate, rhythm, no murmur Gastrointestinal: normal bowel sounds, non tender, no mass, no organomegaly, no bruit, non-distended Musculoskeletal: back normal, gait/station normal, normal range of motion, other - Right leg: Tenderness to the proximal calf and volar aspect of the thigh. Psychiatric: mood/affect normal Medical Decision Making Diagnostic Impression: Primary Impression: Leg pain, right ER Course Patient presents with right leg pain. No DVT or infection. Most likely neuropathy versus strain. Will discharge home. CT/MRI/US Diagnostic Results CT/MRI/US Diagnostic Results : Imaging Test Ordered: Right leg ultrasound Impression Negative per plate conditioner Last Vital Signs Date Time Temp Pulse Resp B/P (MAP) Pulse Ox O2 Delivery O2 Flow Rate FiO2 11/20/18 23:27 98.8 87 16 184/79 (114) 98 Room Air Status: improved Disposition: HOME, SELF-CARE Condition: Stable Scripts Hydrocodone/Acetaminophen 5-325* (HYDROCODONE/ACETAMINOPHEN 5-325*) 1 Each Tablet 1 TAB ORAL Q6H PRN for For Pain, #20 TAB 0 Refills Prov: Demetri Yan MD 11/21/18 Additional Instructions: Follow-up with your doctor in 7 days. Return if symptoms worsen. Demetri Yan MD Nov 20, 2018 23:41
[2018-11-20] MEDS ORDERED: DEXILANT60 MG ORAL (23:45)
[2018-11-20] MEDS ORDERED: HYDROcodone/Acetamin 5/325 tab ORAL ONE (23:45)
[2018-11-20] MEDS ORDERED: AMLODIPINE BESYL5 MG ORAL (23:45)
[2018-11-20] MEDS ORDERED: DONEPEZIL HCL10 M2 ORAL (23:45)
[2018-11-20] MEDS ORDERED: ASPIRIN81 MG ORAL (23:45)
[2018-11-20] MEDS ORDERED: GABAPENTIN300 MG ORAL (23:59)
[2018-11-20] MEDS ORDERED: LORAZEPAM1 MG ORAL (23:59)
[2018-11-20] MEDS ORDERED: PRILOSEC OTC20 MG ORAL (23:59)
[2018-11-20] MEDS ORDERED: TRULICITY0.75 MG/0. SQ (23:59)
[2018-11-20] MEDS ORDERED: CALAN SR120 MG PO (23:59)
[2018-11-20] MEDS ORDERED: PROAIR HFA8.5 GM INH (23:59)
[2018-11-20] MEDS ORDERED: FLUTICASONE PRO16 G1 NASAL (23:59)
[2018-11-20] MEDS ORDERED: GLIMEPIRIDE4 MG ORAL (23:59)
[2018-11-21] MEDS ORDERED: HYDROCODON-ACE1 EA15 ORAL (00:48)
[2018-11-21 01:02] VITALS: BP 160/82
--- NOTE | 2018-11-21 01:02 | NUR ---
ER Nurse Note: Pt seen, treated, medically cleared for discharge by ERMD. Discharge instuctions and prescriptions given with repeat verbalization by pt. Emphasized to follow up with primay care provider; take whole course of medication. Explained each medication. All orders completed per ERMD orders. Pt a&ox4, VSS, no signs of distress. ID band removed. All questions answered per pt's questions. Pt left with all belongings, left with own transportation.
--- NOTE | 2018-11-21 13:13 | Diagnostic Imaging Report ---
Indication: Right lower extremity pain and swelling. Technique: Duplex Doppler imaging performed from the right common femoral vein to the popliteal vein. FINDINGS: Normal compressibility demonstrated from the common femoral vein to the popliteal vein. Respiratory phasicity and good augmentation demonstrated on waveform analysis. There is no evidence of thrombosis. IMPRESSION: No evidence of deep venous thrombosis within the right lower extremity.
== END 2018-11-21 01:02 | disposition home or self-care (01) ==
LOC: EMR 23:51
DX: M79.604 Pain in right leg (principal); E11.9 Type 2 diabetes mellitus without complications; Z86.73 Personal history of transient ischemic attack (TIA), and cerebral infarction without residual deficits; Z88.8 Allergy status to other drugs, medicaments and biological substances; I10 Essential (primary) hypertension; G40.909 Epilepsy, unspecified, not intractable, without status epilepticus
CPT/HCPCS: 93971; 99284

== ENCOUNTER 2019-01-13 15:41 | Outpatient (CLI) | payer MEDICARE, MEDICAID ==
[~2019-01-13 15:41] MED LIST changes: +AMLODIPINE BESYL5 MG ORAL; +ASPIRIN81 MG ORAL; +CALAN SR120 MG PO; +DEXILANT60 MG ORAL; +DONEPEZIL HCL10 M2 ORAL; +FLUTICASONE PRO16 G1 NASAL; +GABAPENTIN300 MG ORAL; +GLIMEPIRIDE4 MG ORAL; +LORAZEPAM1 MG ORAL; +PRILOSEC OTC20 MG ORAL; +PROAIR HFA8.5 GM INH; +TRULICITY0.75 MG/0. SQ
--- NOTE | 2019-01-13 16:50 | Diagnostic Imaging Report ---
EXAM: XR Chest, 2 Views CLINICAL HISTORY: PNEUMOTX TECHNIQUE: Frontal and lateral views of the chest. COMPARISON: No relevant prior studies available. FINDINGS: Lungs: Mildly increased interstitial markings. The lungs otherwise clear without focal consolidation. Pleural space: Unremarkable. The costophrenic angle are sharp. No visible pneumothorax. Heart: Unremarkable. No cardiomegaly. Mediastinum: Unremarkable. Bones joints: Mild degenerative changes throughout the visualized spine. Upper abdomen: Surgical clips in the right upper abdominal quadrant suggest prior cholecystectomy. IMPRESSION: Mildly increased interstitial markings. This is likely related to chronic senescent changes although differential diagnosis may also include mild bronchitis or interstitial pneumonitis.
== END 2019-01-13 17:41 | disposition home or self-care (01) ==
LOC: RAD 15:41
DX: J18.9 Pneumonia, unspecified organism (principal); Z90.49 Acquired absence of other specified parts of digestive tract
CPT/HCPCS: 71046

== ENCOUNTER 2019-02-09 17:47 | Inpatient (IN) | payer MEDICARE, MEDICAID ==
[~2019-02-09] VITALS: Ht 160 cm; Wt 78.5 kg
[2019-02-09 20:33] VITALS: BP 130/93
--- NOTE | 2019-02-09 20:33 | NUR ---
NURSE NOTES: Received pt direct admit from home, AOx4, complaint of right knee tellez 06/26. No distress noted. Will admit pt to floor. Bed in lowest position and locked, side rails u x 2, call light within reach. Will continue to monitor.
--- NOTE | 2019-02-09 21:30 | NUR ---
NURSE NOTES: Attempted to insert IV unsuccessful. Called ICU to come and try to insert IV.
[2019-02-09 23:13] LABS: BASOPHILS % (AUTO) 1.4 % (0.0-2.0); EOSINOPHILS % (AUTO) 1.9 % (0.0-3.0); HEMATOCRIT 41.3 % (37.0-47.0); HEMOGLOBIN 14.1 G/DL (12.0-16.0); LYMPHOCYTES % (AUTO) 32.6 % (20.0-45.0); MEAN CORPUSCULAR VOLUME 100 FL (80-99); MONOCYTES % (AUTO) 6.2 % (1.0-10.0); NEUTROPHILS % (AUTO) 57.9 % (45.0-75.0); PLATELET COUNT 236 K/UL (150-450); RED BLOOD COUNT 4.13 M/UL (4.20-5.40); RED CELL DISTRIBUTION WIDTH 10.8 % (11.6-14.8); WHITE BLOOD COUNT 5.3 K/UL (4.8-10.8)
[2019-02-09 23:19] LABS: ANION GAP 9 mmol/L (5-15); BLOOD UREA NITROGEN 15 mg/dL (7-18); CALCIUM 9.8 MG/DL (8.5-10.1); CARBON DIOXIDE 28 MMOL/L (21-32); CHLORIDE 108 MMOL/L (98-107); CREATININE 0.9 MG/DL (0.55-1.30); POTASSIUM 4.4 MMOL/L (3.5-5.1); SODIUM 145 MMOL/L (136-145)
[2019-02-09 23:24] LABS: ALANINE AMINOTRANSFERASE 25 U/L (12-78); ALBUMIN 3.7 G/DL (3.4-5.0); ALBUMIN/GLOBULIN RATIO 0.9 (1.0-2.7); ALKALINE PHOSPHATASE 116 U/L (46-116); ASPARTATE AMINO TRANSFERASE 26 U/L (15-37)
--- NOTE | 2019-02-09 23:30 | NUR ---
NURSE NOTES: IV inserted by ICU nurse left forearm #22 patent and intact.
[2019-02-10] VITALS (12 sets, daily range): BP systolic 121–166; BP diastolic 67–83
[2019-02-10] MEDS ORDERED: Acetaminophen 500mg (ES) tab ORAL PRN (00:30)
[2019-02-10 01:45] LABS: BILIRUBIN, URINE NEGATIVE (NEGATIVE); COLOR,URINE PALE YELLOW; GLUCOSE, URINE (UA) NEGATIVE (NEGATIVE); KETONES,URINE NEGATIVE (NEGATIVE); LEUKOCYTE ESTERASE ,URINE NEGATIVE (NEGATIVE); NITRITE,URINE NEGATIVE (NEGATIVE); PH,URINE 6.5 (4.5-8.0); PROTEIN,URINE NEGATIVE (NEGATIVE); UROBILINOGEN,URINE NORMAL MG/DL (0.0-1.0)
[2019-02-10 01:54] LABS: APPEARANCE,URINE CLEAR
[2019-02-10] MEDS ORDERED: Duramorph PF 5mg/10ml amp ONE (06:00)
[2019-02-10] MEDS ORDERED: EPINEPHrine 1mg/1ml Amp ONE (06:00)
[2019-02-10] MEDS ORDERED: Kenalog-40 1ml Vial ONE (06:00)
[2019-02-10] MEDS ORDERED: Lidocaine 1% 10mg/ml/Epi 0.005mg/ml 30ml vial INJ ONE ×2 (06:00→07:30)
[2019-02-10] MEDS ORDERED: Propofol 200mg/20ml IV ONE (06:00)
[2019-02-10] MEDS ORDERED: Midazolam 2mg/2ml Inj ONE (06:00)
[2019-02-10] MEDS ORDERED: fentaNYL 100 mcg/2 mL IV ONE (06:00)
[2019-02-10] MEDS ORDERED: Ketorolac 30mg Inj ONE (06:00)
[2019-02-10] MEDS ORDERED: Bupivacaine 0.25% Inj 30ml INJ ONE ×3 (06:00→08:00)
[2019-02-10] MEDS ORDERED: Lidocaine 1% MPF 10mg/ml 5ml ONE (06:00)
--- NOTE | 2019-02-10 06:54 | NUR ---
NURSE NOTES: Pt picked up taken down to O.R. for procedure. Pt's cell phone, glasses, and phone full charge bookkeeper left inside the room. Will endorse to next nurse.
[2019-02-10] MEDS ORDERED: EPINEPHrine 1mg/1ml Amp IV ONE (07:30)
[2019-02-10] MEDS ORDERED: Sterile Water Irrig 1000ml IRRIG ONE (07:30)
[2019-02-10] MEDS ORDERED: NS Irrig 4000ml IRRIG ONE (07:30)
[2019-02-10] MEDS ORDERED: LR 1000ml ONE (07:30)
--- NOTE | 2019-02-10 07:30 | NUR ---
NURSE NOTES: Patient is off unit. Room door shut, all belongings accounted for.
--- NOTE | 2019-02-10 07:32 | NUR ---
HAND-OFF: Report given to CHRISTINE Pat. Edorsed to Adilia pt's cellphone, speech and language clinician, and glasses in the room. Rounds made with Adilia in the room and she saw cellphone, speech and language clinician, and glasses inside the room.
[2019-02-10] MEDS ORDERED: Duramorph PF 5mg/10ml amp EPIDUR ONE (08:00)
[2019-02-10] MEDS ORDERED: Ketorolac 30mg Inj IM ONE (08:00)
[2019-02-10] MEDS ORDERED: Kenalog-40 1ml Vial IARTIC ONE (08:00)
[2019-02-10] MEDS: Aspirin EC 81mg tab ORAL SCH (09:00)
[2019-02-10] MEDS: Glimepiride 1mg tab ORAL SCH ×2 (09:00→17:58)
[2019-02-10] MEDS: Lisinopril 20mg tab ORAL SCH (09:00)
[2019-02-10] MEDS: Depakote 500mg tab ORAL SCH ×3 (09:00→17:58)
[2019-02-10] MEDS ORDERED: Hydromorphone 0.5mg/0.5ml inj SUBQ PRN (09:00)
--- NOTE | 2019-02-10 09:29 | NUR ---
NURSE NOTES: Patient arrived on unit. Stable. Denies pain or SOB. Patient is oriented to room, unit, and call light. Patient encouraged to use call light for assistance, verbalized understanding. Patient has all belongings at bedside. Patient's sister is at bedside. Patient's surgical dressing is clean, dry, and intact. Patient is in bed in locked and lowest position with call light within reach. Will continue to monitor.
[2019-02-10] MEDS ORDERED: D5 1/2NS 1,000 ML IV SCH (10:30)
--- NOTE | 2019-02-10 11:10 | Cardiac Electrophysiology PN ---
Subjective Subjective [id number] Objective Last 24 Hour Vital Signs Date Time Temp Pulse Resp B/P (MAP) Pulse Ox O2 Delivery O2 Flow Rate FiO2 02/10/19 09:31 97.6 71 20 162/83 (109) 100 02/10/19 09:15 97.8 71 14 146/79 100 Nasal Cannula 3 02/10/19 09:00 75 15 162/81 100 Nasal Cannula 3 02/10/19 09:00 Room Air 02/10/19 08:50 78 15 159/82 100 Nasal Cannula 3 02/10/19 08:40 83 16 160/82 100 Simple Mask 6 02/10/19 08:35 84 15 166/82 100 Simple Mask 6 02/10/19 08:30 97.5 90 14 150/77 100 Simple Mask 6 02/10/19 05:00 97.9 77 18 132/83 (99) 97 02/10/19 00:00 97.9 73 18 144/71 (95) 96 02/09/19 20:36 Room Air 02/09/19 20:33 98.1 80 18 130/93 (105) 97 Intake and Output 02/09/19 02/10/19 19:00 07:00 Intake Total 840 ml Output Total 500 ml Balance 340 ml Intake Oral 360 ml IV Total 480 ml Output Urine Total 500 ml Laboratory Tests Test 02/09/19 22:40 02/10/19 01:30 White Blood Count 5.3 K/UL (4.8-10.8) Red Blood Count 4.13 M/UL (4.20-5.40) L Hemoglobin 14.1 G/DL (12.0-16.0) Hematocrit 41.3 % (37.0-47.0) Mean Corpuscular Volume 100 FL (80-99) H Mean Corpuscular Hemoglobin 34.2 PG (27.0-31.0) H Mean Corpuscular Hemoglobin Concent 34.2 G/DL (32.0-36.0) Red Cell Distribution Width 10.8 % (11.6-14.8) L Platelet Count 236 K/UL (150-450) Mean Platelet Volume 6.0 FL (6.5-10.1) L Neutrophils (%) (Auto) 57.9 % (45.0-75.0) Lymphocytes (%) (Auto) 32.6 % (20.0-45.0) Monocytes (%) (Auto) 6.2 % (1.0-10.0) Eosinophils (%) (Auto) 1.9 % (0.0-3.0) Basophils (%) (Auto) 1.4 % (0.0-2.0) Prothrombin Time 10.2 SEC (9.30-11.50) Prothromb Time International Ratio 1.0 (0.9-1.1) Activated Partial Thromboplast Time 23 SEC (23-33) Sodium Level 145 MMOL/L (136-145) Potassium Level 4.4 MMOL/L (3.5-5.1) Chloride Level 108 MMOL/L (98-107) H Carbon Dioxide Level 28 MMOL/L (21-32) Anion Gap 9 mmol/L (5-15) Blood Urea Nitrogen 15 mg/dL (7-18) Creatinine 0.9 MG/DL (0.55-1.30) Estimat Glomerular Filtration Rate mL/min (>60) Glucose Level 126 MG/DL (74-106) H Calcium Level 9.8 MG/DL (8.5-10.1) Total Bilirubin 1.0 MG/DL (0.2-1.0) Aspartate Amino Transf (AST/SGOT) 26 U/L (15-37) Alanine Aminotransferase (ALT/SGPT) 25 U/L (12-78) Alkaline Phosphatase 116 U/L (46-116) Total Protein 8.0 G/DL (6.4-8.2) Albumin 3.7 G/DL (3.4-5.0) Globulin 4.3 g/dL Albumin/Globulin Ratio 0.9 (1.0-2.7) L Urine Color Pale yellow Urine Appearance Clear Urine pH 6.5 (4.5-8.0) Urine Specific [place] 1.010 (1.005-1.035) Urine Protein Negative (NEGATIVE) Urine Glucose (UA) Negative (NEGATIVE) Urine Ketones Negative (NEGATIVE) Urine Blood Negative (NEGATIVE) Urine Nitrite Negative (NEGATIVE) Urine Bilirubin Negative (NEGATIVE) Urine Urobilinogen Normal MG/DL (0.0-1.0) Urine Leukocyte Esterase Negative (NEGATIVE) Urine RBC 0-2 /HPF (0 - 2) Urine WBC 0 /HPF (0 - 2) Urine Squamous Epithelial Cells Few /LPF (NONE/OCC) Urine Bacteria None /HPF (NONE) Julio Lee MD Feb 10, 2019 11:10
[2019-02-10] MEDS ORDERED: cloNIDine 0.2mg Tab ORAL PRN (11:15)
[2019-02-10] MEDS: celeBREX 200mg Cap **SURGERY PATIENTS ONLY ORAL SCH (11:22)
[2019-02-10] MEDS: HYDROcodone/Acetamin 5/325 tab ORAL PRN (11:23)
[2019-02-10] MEDS: NovoLOG Insulin Flexpen SUBQ SCH ×3 (11:30→20:50)
--- NOTE | 2019-02-10 11:55 | History and Physical Report ---
DATE OF ADMISSION: 02/09/2019 This is the office patient of [email or web address]. HISTORY OF PRESENT ILLNESS: The patient is a direct admit. The patient has been complaining of intractable knee pain. The patient denies nausea, vomiting, or diarrhea. Denies shortness of breath. Denies cough. Denies chills. Does have spasms throughout and pain throughout especially in the knees. Denies chest pain. Denies orthopnea. The patient has also been weak and also has history of hypertension. PAST MEDICAL HISTORY: Significant for severe GERD, hypertension, history of chronic pain syndrome, arthritis, NIDDM, history of diverticulosis. PAST SURGICAL HISTORY: Denies. ALLERGIES: To nitroglycerin, , and Haldol. MEDICATIONS: Gabapentin, donepezil, Dexilant, aspirin, amlodipine, breathing treatment, lorazepam, and glyburide. FAMILY HISTORY: Noncontributory. SOCIAL HISTORY: Denies alcohol or illicit drugs. REVIEW OF SYSTEMS: HEENT: Denies headaches. RESPIRATORY: Denies shortness of breath. Denies cough. CARDIOVASCULAR: Denies chest pain. GI: Denies nausea, vomiting, or diarrhea. EXTREMITIES: Does have pain syndrome, especially in the lower extremities. CENTRAL NERVOUS SYSTEM: Denies change in vision or speech pattern. PHYSICAL EXAMINATION: VITAL SIGNS: Temperature 97.2, pulse , blood pressure 140/70. HEENT: PERRLA. NECK: Supple. No lymphadenopathy. CHEST: Clear to auscultation. CARDIOVASCULAR: Regular rate and rhythm. No murmurs or extra sounds. ABDOMEN: Soft, nontender, nondistended. No organomegaly. EXTREMITIES: +1 edema. Reflexes on both sides. Moves all four extremities. LABORATORIES: Pending. ASSESSMENT AND PLAN: The patient Dr. Marinelli for the knee and the patient has been cleared for surgery as an outpatient. The patient is having lower extremity weakness due to tenderness in the lower extremity and we will admit to the skilled nursing postop and also adjust the medications . Miky Porter M.D. DR: JIMMY JOB#: [id number] CC:
[2019-02-10] MEDS: Docusate 100mg cap ORAL SCH ×2 (13:37→17:59)
[2019-02-10] MEDS: ceFAZolin sod 1 GM in D5W 55 ML IV SCH ×2 (13:38→21:42)
--- NOTE | 2019-02-10 14:00 | NUR ---
PT NOTE Received MD order for PT evaluation. Attempted to see patient for PT evaluation however patient declining to participate with PT at this time, c/o feeling groggy. Adilia KING notified, will re-attempt tomorrow. Adilia KING also notified that a WB clarification is needed from MD.
--- NOTE | 2019-02-10 17:15 | Consultation ---
DATE OF CONSULTATION: 02/10/2019 CARDIOLOGY CONSULTATION CONSULTING PHYSICIAN: Julio Lee M.D. REFERRING PHYSICIAN: Miky Porter M.D. REASON FOR CONSULTATION: Management of hypertension, hyperlipidemia, and coronary artery disease. HISTORY OF PRESENT ILLNESS: The patient is a 73-year-old lady with history of hypertension, diabetes, hyperlipidemia, questionable coronary artery disease, seizure disorder, and depression who was scheduled as an outpatient for right knee laparoscopic surgery by Dr. Marinelli who has performed just earlier today. The patient was admitted for monitoring and a Cardiology consultation was requested for further evaluation and management. At the time of my evaluation, the patient denies any chest pain or palpitation or shortness of breath. REVIEW OF SYSTEMS: Review of systems was performed and was negative other than what was mentioned in history of present illness. PAST MEDICAL HISTORY: As mentioned above. FAMILY HISTORY: Noncontributory. SOCIAL HISTORY: She does not smoke or drink alcohol. MEDICATIONS: Includes Neurontin, Amaryl, Depakote, Prevacid, lisinopril 40 mg daily, 120 mg b.i.d., Flexeril, Lipitor 20 mg daily, aspirin. PHYSICAL EXAMINATION: VITAL SIGNS: Show blood pressure of 163/83, pulse 71, respirations 18, and she is afebrile. HEAD AND NECK: Showed no JVD or carotid bruits. LUNGS: Clear. CARDIOVASCULAR: Regular S1 and S2 with no gallop or murmur. ABDOMEN: Soft. EXTREMITIES: No pitting edema, status post right knee surgery. LABORATORY DATA: Labs show white count of 5.2, hematocrit of 14.9, hematocrit 41.3, and platelet count 236. Sodium 145, potassium 4.4, BUN of 15, creatinine 0.9, and glucose of 126. INR is 1. Urinalysis is negative. ASSESSMENT AND PLAN: 1. Hypertension. The patient is already on lisinopril 40 mg daily and 120 mg b.i.d. as well as amlodipine 10 mg daily. I will add p.r.n. clonidine to her medical regimen. 2. Hyperlipidemia, on Lipitor 10 mg daily. 3. History of CVA with right-sided weakness, on aspirin, Lipitor, Neurontin. 4. Status post right knee laparoscopic surgery by Dr. Marinelli. Thank you very much for allowing me to participate in the care of this patient. Please do not hesitate to contact me for any questions regarding my evaluation. Julio Lee M.D. DR: MENDOZA JOB#: [id number] CC:
--- NOTE | 2019-02-10 19:20 | NUR ---
HAND-OFF: Report given to Vickey KING. Patient is stable.
--- NOTE | 2019-02-10 19:30 | NUR ---
NURSE NOTES: Received report from CHRISTINE Pat. Received pt laying in bed asleep, easily arousable by verbal stimuli, AOx4, denies any ain, surgical site c/d/i. Scd inplace on left leg. IV L forearm patent and intact. IV fluid infusing as ordered. Bed in lowest position and locked, side rails paddded for seizure precaution and up x 2, call light within reach. Will continue to monitor.
[2019-02-10] MEDS: LORazepam 1mg tab ORAL SCH (20:48)
[2019-02-10] MEDS: Cyclobenzaprine 10mg Tab ORAL SCH (20:48)
--- NOTE | 2019-02-10 21:57 | General Progress Note ---
Assessment/Plan Problem List: (1) Meniscus, medial, derangement ICD Codes: M23.305 - Other meniscus derangements, unspecified medial meniscus, unspecified knee SNOMED: 009713924 Status: progressing Assessment/Plan: needs snf for pt/ot post op Subjective ROS Limited/Unobtainable: Yes Allergies: Coded Allergies: HALOPERIDOL (Verified Allergy, Severe, 02/09/19) HALLUCINATING NITROGLYCERIN (Verified Allergy, Severe, 02/09/19) HEADACHE LIDOCAINE (Verified Allergy, Intermediate, 02/09/19) HIVES,SHAKING AND RAPID HEART BEAT Objective Last 24 Hour Vital Signs Date Time Temp Pulse Resp B/P (MAP) Pulse Ox O2 Delivery O2 Flow Rate FiO2 02/10/19 21:00 Room Air 02/10/19 20:00 97.7 72 17 121/67 (85) 97 02/10/19 17:58 127/102 02/10/19 17:58 71 127/102 02/10/19 16:00 98.1 71 20 124/71 (88) 98 02/10/19 12:00 98.2 71 18 150/83 (105) 99 02/10/19 11:22 150/83 02/10/19 09:31 97.6 71 20 162/83 (109) 100 02/10/19 09:15 97.8 71 14 146/79 100 Nasal Cannula 3 02/10/19 09:00 75 15 162/81 100 Nasal Cannula 3 02/10/19 09:00 Room Air 02/10/19 08:50 78 15 159/82 100 Nasal Cannula 3 02/10/19 08:40 83 16 160/82 100 Simple Mask 6 02/10/19 08:35 84 15 166/82 100 Simple Mask 6 02/10/19 08:30 97.5 90 14 150/77 100 Simple Mask 6 02/10/19 05:00 97.9 77 18 132/83 (99) 97 02/10/19 00:00 97.9 73 18 144/71 (95) 96 Intake and Output 02/09/19 02/10/19 18:59 06:59 Intake Total 840 ml Output Total 500 ml Balance 340 ml Intake Oral 360 ml IV Total 480 ml Output Urine Total 500 ml Laboratory Tests 02/09/19 22:40: White Blood Count 5.3, Red Blood Count 4.13L, Hemoglobin 14.1, Hematocrit 41.3, Mean Corpuscular Volume 100H, Mean Corpuscular Hemoglobin 34.2H, Mean Corpuscular Hemoglobin Concent 34.2, Red Cell Distribution Width 10.8L, Platelet Count 236, Mean Platelet Volume 6.0L, Neutrophils (%) (Auto) 57.9, Lymphocytes (%) (Auto) 32.6, Monocytes (%) (Auto) 6.2, Eosinophils (%) (Auto) 1.9, Basophils (%) (Auto) 1.4, Prothrombin Time 10.2, Prothromb Time International Ratio 1.0, Activated Partial Thromboplast Time 23, Sodium Level 145, Potassium Level 4.4, Chloride Level 108H, Carbon Dioxide Level 28, Anion Gap 9, Blood Urea Nitrogen 15, Creatinine 0.9, Estimat Glomerular Filtration Rate , Glucose Level 126H, Calcium Level 9.8, Total Bilirubin 1.0, Aspartate Amino Transf (AST/SGOT) 26, Alanine Aminotransferase (ALT/SGPT) 25, Alkaline Phosphatase 116, Total Protein 8.0, Albumin 3.7, Globulin 4.3, Albumin/Globulin Ratio 0.9L 02/10/19 01:30: Urine Color Pale yellow, Urine Appearance Clear, Urine pH 6.5, Urine Specific [place] 1.010, Urine Protein Negative, Urine Glucose (UA) Negative, Urine Ketones Negative, Urine Blood Negative, Urine Nitrite Negative, Urine Bilirubin Negative, Urine Urobilinogen Normal, Urine Leukocyte Esterase Negative, Urine RBC 0-2, Urine WBC 0, Urine Squamous Epithelial Cells Few, Urine Bacteria None Height (Feet): 5 Height (Inches): 3.00 Weight (Pounds): 173 Neck: supple Cardiovascular: normal rate Respiratory/Chest: lungs clear Abdomen: soft Miky Porter MD Feb 10, 2019 21:57
[2019-02-11] VITALS: BP 134/81
[2019-02-11 04:00] VITALS: BP 132/78
[2019-02-11] MEDS: ceFAZolin sod 1 GM in D5W 55 ML IV SCH (06:14)
[2019-02-11] MEDS: NovoLOG Insulin Flexpen SUBQ SCH ×4 (06:30→20:45)
[2019-02-11 06:57] LABS: CHOLESTEROL 213 MG/DL (< 200); HDL CHOLESTEROL 44 MG/DL (40-60); TRIGLYCERIDES 85 MG/DL (30-150)
--- NOTE | 2019-02-11 07:16 | NUR ---
HAND-OFF: Report given to CHRISTINE Pat. Pt in stable condition.
--- NOTE | 2019-02-11 07:30 | NUR ---
NURSE NOTES: Patient is in bed asleep. Stable. No visible signs of distress at this time. Breathing is even and unlabored. Patient is in bed in locked and lowest position with call light within reach. All safety measures provided. Will continue to monitor.
[2019-02-11 08:00] VITALS: BP 138/75
[2019-02-11] MEDS: celeBREX 200mg Cap **SURGERY PATIENTS ONLY ORAL SCH (09:18)
[2019-02-11] MEDS: Aspirin EC 81mg tab ORAL SCH (09:18)
[2019-02-11] MEDS: Lisinopril 20mg tab ORAL SCH (09:18)
[2019-02-11] MEDS: Depakote 500mg tab ORAL SCH ×3 (09:18→17:50)
[2019-02-11] MEDS: Docusate 100mg cap ORAL SCH ×3 (09:19→17:50)
[2019-02-11] MEDS: Glimepiride 1mg tab ORAL SCH ×2 (09:19→17:50)
[2019-02-11 12:00] VITALS: BP 111/64
[2019-02-11 16:00] VITALS: BP 114/62
--- NOTE | 2019-02-11 16:09 | NUR ---
PT Note PT amaal completed, tx initiated. Patient is very cooperative; c/o feeling sleepy. Patient has pain on the right knee; mild antalgia noted. Patient needs PT to increase her muscle strength and to train/instruct on safe transfers and gait to enable her to return to [facility]. Addendum: 02/11/19 at 1609 by CELESTINE HDEZ PT Amended: Links added.
--- NOTE | 2019-02-11 17:21 | Cardiac Electrophysiology PN ---
Assessment/Plan Assessment/Plan 1. Hypertension. Continue lisinopril 40 mg daily and amlodipine 10 mg daily and p.r.n. clonidine Change Verapamil to Lopressor 50 bid as patient already on Norvasc 2. Hyperlipidemia, on Lipitor 10 mg daily. 3. History of CVA with right-sided weakness, on aspirin, Lipitor, Neurontin. 4. Status post right knee laparoscopic surgery by Dr. Marinelli. NUBIA RN, Twin sister Subjective Subjective Feeling better. Twin sister and RN at bedside Objective Last 24 Hour Vital Signs Date Time Temp Pulse Resp B/P (MAP) Pulse Ox O2 Delivery O2 Flow Rate FiO2 02/11/19 12:00 111/64 02/11/19 12:00 97.4 67 15 111/64 (80) 98 02/11/19 09:19 68 138/75 02/11/19 09:19 68 138/75 02/11/19 09:18 138/75 02/11/19 09:00 Room Air 02/11/19 08:00 97.7 68 16 138/75 (96) 99 02/11/19 06:17 127/71 02/11/19 04:00 98.1 75 19 132/78 (96) 96 02/11/19 00:00 97.9 76 19 134/81 (98) 95 02/10/19 23:47 134/81 02/10/19 21:00 Room Air 02/10/19 20:00 97.7 72 17 121/67 (85) 97 02/10/19 17:58 127/102 02/10/19 17:58 71 127/102 Intake and Output 02/10/19 02/11/19 19:00 07:00 Intake Total 400 ml 820 ml Output Total 655 ml 700 ml Balance -255 ml 120 ml Intake Oral 240 ml IV Total 400 ml 580 ml Output Urine Total 650 ml 700 ml Estimated Blood Loss 5 ml # Voids 3 1 Laboratory Tests Test 02/11/19 05:45 Triglycerides Level 85 MG/DL (30-150) Cholesterol Level 213 MG/DL (< 200) H LDL Cholesterol 146 mg/dL (<100) H HDL Cholesterol 44 MG/DL (40-60) Cholesterol/HDL Ratio 4.8 (3.3-4.4) H Objective HEAD AND NECK: Showed no JVD or carotid bruits. LUNGS: Clear. CARDIOVASCULAR: Regular S1 and S2 with no gallop or murmur. ABDOMEN: Soft. EXTREMITIES: No pitting edema, status post right knee surgery. Julio Lee MD Feb 11, 2019 17:21
--- NOTE | 2019-02-11 19:00 | NUR ---
NURSE NOTES: Patient appears to be lethargic. VSS. AOx4, arousable to verbal stimuli. Patient is stable and denies pain. No visible distress. Breathing is even and unlabored. Received new orders from Dr. Porter for labs in am.
--- NOTE | 2019-02-11 19:30 | NUR ---
HAND-OFF: Report given to Susan KING. Patient is stable.
[2019-02-11 20:00] VITALS: BP_SYST 117; BP_SYST 121; BP_DIAS 63; BP_DIAS 69
[2019-02-11] MEDS: Cyclobenzaprine 10mg Tab ORAL SCH (20:43)
[2019-02-11] MEDS: Metoprolol Tartrate 50mg tab ORAL SCH (20:44)
[2019-02-11] MEDS: LORazepam 1mg tab ORAL SCH (20:45)
--- NOTE | 2019-02-11 20:55 | General Progress Note ---
Assessment/Plan Problem List: (1) Meniscus, medial, derangement ICD Codes: M23.305 - Other meniscus derangements, unspecified medial meniscus, unspecified knee SNOMED: 261825331 Status: progressing Assessment/Plan: needs snf for pt not safe to go home post op has many stairs afebrile Subjective ROS Limited/Unobtainable: Yes Allergies: Coded Allergies: HALOPERIDOL (Verified Allergy, Severe, 02/09/19) HALLUCINATING NITROGLYCERIN (Verified Allergy, Severe, 02/09/19) HEADACHE LIDOCAINE (Verified Allergy, Intermediate, 02/09/19) HIVES,SHAKING AND RAPID HEART BEAT Objective Last 24 Hour Vital Signs Date Time Temp Pulse Resp B/P (MAP) Pulse Ox O2 Delivery O2 Flow Rate FiO2 02/11/19 20:44 75 121/63 02/11/19 17:51 110/56 02/11/19 16:00 97.1 73 16 114/62 (79) 93 02/11/19 12:00 111/64 02/11/19 12:00 97.4 67 15 111/64 (80) 98 02/11/19 09:19 68 138/75 02/11/19 09:19 68 138/75 02/11/19 09:18 138/75 02/11/19 09:00 Room Air 02/11/19 08:00 97.7 68 16 138/75 (96) 99 02/11/19 06:17 127/71 02/11/19 04:00 98.1 75 19 132/78 (96) 96 02/11/19 00:00 97.9 76 19 134/81 (98) 95 02/10/19 23:47 134/81 02/10/19 21:00 Room Air Intake and Output 02/10/19 02/11/19 18:59 06:59 Intake Total 400 ml 820 ml Output Total 655 ml 700 ml Balance -255 ml 120 ml Intake Oral 240 ml IV Total 400 ml 580 ml Output Urine Total 650 ml 700 ml Estimated Blood Loss 5 ml # Voids 3 1 Laboratory Tests 02/11/19 05:45: Triglycerides Level 85, Cholesterol Level 213H, LDL Cholesterol 146H, HDL Cholesterol 44, Cholesterol/HDL Ratio 4.8H Height (Feet): 5 Height (Inches): 3.00 Weight (Pounds): 173 Cardiovascular: normal rate Respiratory/Chest: lungs clear Abdomen: soft Miky Porter MD Feb 11, 2019 20:55
--- NOTE | 2019-02-11 22:32 | NUR ---
NURSES NOTE: Received pt in bed, a/o x4, able to let needs be known. Patient shows no outward s/s of distress. Breathing pattern is even and unlabored. VS WNL. Reported from previous shift pt was lethargic and slept through out most of day. 2100 Ativan held to avoid further drowsiness. Patient agreed to medication being held. Pt has been responsive and alert for NOC shift thus far. Right knee elevated with ice applied. No complaints of pain. Iv patent and fluids running. Bed at lowest level, call light within reach, pt will be closely monitored.
[2019-02-12] VITALS: BP 132/63
[2019-02-12 04:00] VITALS: BP 141/65
[2019-02-12] MEDS: NovoLOG Insulin Flexpen SUBQ SCH ×4 (05:58→21:53)
[2019-02-12] MEDS: HYDROcodone/Acetamin 5/325 tab ORAL PRN (06:17)
--- NOTE | 2019-02-12 07:30 | NUR ---
NURSE NOTES: Patient is in bed awake and able to verbalize needs. Stable. Denies pain or SOB. Patient is encouraged to use call light for assistance. Patient is in and out of sleep. Will continue to monitor patient. Patient in bed in locked and lowest position with call light within reach. All safety measures provided. Seizure precautions implemented. Patient removed side rail padding and refused padding. Patient aware of all risks and benefits.
[2019-02-12 08:00] VITALS: BP 144/76
[2019-02-12] MEDS: Aspirin EC 81mg tab ORAL SCH (08:20)
--- NOTE | 2019-02-12 08:20 | NUR ---
HAND OFF: Report given to CHRISTINE Pat. Patient in stable condition. No excessive lethargy noted for NOC shift.
[2019-02-12] MEDS: Docusate 100mg cap ORAL SCH ×3 (08:21→18:16)
[2019-02-12] MEDS: celeBREX 200mg Cap **SURGERY PATIENTS ONLY ORAL SCH (08:21)
[2019-02-12] MEDS: Lisinopril 20mg tab ORAL SCH (08:21)
[2019-02-12] MEDS: Glimepiride 1mg tab ORAL SCH ×2 (08:22→18:16)
[2019-02-12] MEDS: Metoprolol Tartrate 50mg tab ORAL SCH ×2 (08:22→20:58)
--- NOTE | 2019-02-12 08:23 | Cardiac Electrophysiology PN ---
Assessment/Plan Assessment/Plan 1. Hypertension. Continue lisinopril 40 mg daily, Lopressor 50 bid and amlodipine 10 mg daily and p.r.n. clonidine 2. Hyperlipidemia, on Lipitor 10 mg daily. 3. History of CVA with right-sided weakness, on aspirin, Lipitor, Neurontin. 4. Status post right knee laparoscopic surgery by Dr. Marinelli. NUBIA RN Subjective Subjective Feeling better. RN at bedside. Depakote level pending as patient had AMS Objective Last 24 Hour Vital Signs Date Time Temp Pulse Resp B/P (MAP) Pulse Ox O2 Delivery O2 Flow Rate FiO2 02/12/19 05:55 141/65 02/12/19 04:00 98.1 67 17 141/65 (90) 97 02/12/19 00:30 132/64 02/12/19 00:00 98.1 73 18 132/63 (86) 92 02/11/19 21:00 Nasal Cannula 2.0 02/11/19 20:44 75 121/63 02/11/19 20:00 98.0 75 17 121/63 (82) 95 02/11/19 17:51 110/56 02/11/19 16:00 97.1 73 16 114/62 (79) 93 02/11/19 12:00 111/64 02/11/19 12:00 97.4 67 15 111/64 (80) 98 02/11/19 09:19 68 138/75 02/11/19 09:19 68 138/75 02/11/19 09:18 138/75 02/11/19 09:00 Room Air Intake and Output 02/11/19 02/12/19 19:00 07:00 Intake Total 480 ml Output Total 700 ml Balance -220 ml Intake Oral 480 ml Output Urine Total 700 ml # Voids 4 Laboratory Tests Test 02/12/19 05:40 Valproic Acid (Depakene) Level Pending Objective HEAD AND NECK: Showed no JVD or carotid bruits. LUNGS: Clear. CARDIOVASCULAR: Regular S1 and S2 with no gallop or murmur. ABDOMEN: Soft. EXTREMITIES: No pitting edema, status post right knee surgery. Julio Lee MD Feb 12, 2019 08:23
[2019-02-12] MEDS: Depakote 500mg tab ORAL SCH ×3 (09:25→18:16)
[2019-02-12 12:00] VITALS: BP 135/68
--- NOTE | 2019-02-12 12:47 | General Progress Note ---
Assessment/Plan Problem List: (1) Meniscus, medial, derangement ICD Codes: M23.305 - Other meniscus derangements, unspecified medial meniscus, unspecified knee SNOMED: 423998219 Status: progressing Assessment/Plan: needs snf for pt not safe to go home post op has many stairs in her apartment dc in am Subjective ROS Limited/Unobtainable: Yes Allergies: Coded Allergies: HALOPERIDOL (Verified Allergy, Severe, 02/09/19) HALLUCINATING NITROGLYCERIN (Verified Allergy, Severe, 02/09/19) HEADACHE LIDOCAINE (Verified Allergy, Intermediate, 02/09/19) HIVES,SHAKING AND RAPID HEART BEAT Objective Last 24 Hour Vital Signs Date Time Temp Pulse Resp B/P (MAP) Pulse Ox O2 Delivery O2 Flow Rate FiO2 02/12/19 12:26 135/68 02/12/19 12:00 97.7 67 18 135/68 (90) 98 02/12/19 09:00 Nasal Cannula 2.0 02/12/19 08:22 67 144/76 02/12/19 08:21 67 144/76 02/12/19 08:21 144/76 02/12/19 08:00 98.1 67 18 144/76 (98) 97 02/12/19 05:55 141/65 02/12/19 04:00 98.1 67 17 141/65 (90) 97 02/12/19 00:30 132/64 02/12/19 00:00 98.1 73 18 132/63 (86) 92 02/11/19 21:00 Nasal Cannula 2.0 02/11/19 20:44 75 121/63 02/11/19 20:00 98.0 75 17 121/63 (82) 95 02/11/19 17:51 110/56 02/11/19 16:00 97.1 73 16 114/62 (79) 93 Intake and Output 02/11/19 02/12/19 19:00 07:00 Intake Total 480 ml Output Total 700 ml Balance -220 ml Intake Oral 480 ml Output Urine Total 700 ml # Voids 4 Laboratory Tests 02/12/19 05:40: Valproic Acid (Depakene) Level 69 Height (Feet): 5 Height (Inches): 3.00 Weight (Pounds): 173 Cardiovascular: normal rate Respiratory/Chest: lungs clear Miky Porter MD Feb 12, 2019 12:47
[2019-02-12 16:00] VITALS: BP 140/63
[2019-02-12] MEDS ORDERED: 1/2 NS 1000ml IV ONE (16:04)
[2019-02-12] MEDS ORDERED: NS 500ML ONE (16:04)
--- NOTE | 2019-02-12 19:30 | NUR ---
HAND-OFF: Report given to Alayna KING. Patient is stable.
[2019-02-12 20:00] VITALS: BP 151/72
--- NOTE | 2019-02-12 20:00 | NUR ---
NURSE NOTES: Received report from CHRISTINE Pat. Rounds done. Patient in bed, no distress noted at this time. Bed in low position, locked, side rails up x2, call light within reach. R knee dressing intact and dry, icepack on. Will continue to monitor.
[2019-02-12] MEDS ORDERED: LORazepam 1mg tab ORAL PRN (20:15)
[2019-02-12] MEDS: Cyclobenzaprine 10mg Tab ORAL SCH (20:57)
[2019-02-13] VITALS: BP 131/65
--- NOTE | 2019-02-13 00:05 | NUR ---
NURSE NOTES: Patient rates her knee pain 11/26. Refused pain medication at this time, encouraged to call as needed if she changes her mind. Repositioned for comfort. Ice pack on affected extremity.
[2019-02-13 05:40] VITALS: BP 136/81
[2019-02-13] MEDS: NovoLOG Insulin Flexpen SUBQ SCH ×2 (06:25→11:30)
--- NOTE | 2019-02-13 07:30 | NUR ---
HAND-OFF: Report given to CHRISTINE Cee.
--- NOTE | 2019-02-13 07:51 | NUR ---
NURSE NOTES: Pt awake , states she is awaiting Dr Hutchinson so she can be transferred to a convalescent home. Orders reviewed there are no current orders for discharge. Call light is n reach
[2019-02-13 08:00] VITALS: BP 145/77
[2019-02-13] MEDS: celeBREX 200mg Cap **SURGERY PATIENTS ONLY ORAL SCH (08:27)
[2019-02-13] MEDS: Depakote 500mg tab ORAL SCH ×2 (08:28→13:00)
[2019-02-13] MEDS: Lisinopril 20mg tab ORAL SCH (08:28)
[2019-02-13] MEDS: Glimepiride 1mg tab ORAL SCH (08:28)
[2019-02-13] MEDS: Metoprolol Tartrate 50mg tab ORAL SCH (08:29)
[2019-02-13] MEDS: Aspirin EC 81mg tab ORAL SCH (08:29)
[2019-02-13] MEDS: Docusate 100mg cap ORAL SCH ×2 (08:29→13:00)
--- NOTE | 2019-02-13 09:30 | NUR ---
NURSE NOTES: Dr blum gave orders to discharge to [facility]; for PT/OT D/C hospital medications , continue home medications . Under Dr Charlotte cross
[2019-02-13 12:00] VITALS: BP 118/66
[2019-02-13] MEDS ORDERED: TRAMADOL HCL100 M2 ORAL (12:32)
--- NOTE | 2019-02-13 13:15 | NUR ---
NURSE NOTES: Pt discharge to [facility],with her belongings to include hat copyist, phone shoes clothing which she was wearing, black bag prescription for Tramadol. IV line removed , report given to Acacia KING, .Pt denies pain at this time. Required minimal set up for care. Afternoon blood pressure medication refused. Sister Alyssa phoned address and phone number provided to [facility][1].
--- NOTE | 2019-02-14 14:30 | Discharge Summary ---
Discharge Summary Discharge Summary _ DATE OF ADMISSION: 02/09/2019 DATE OF DISCHARGE: 02/13/2019 DISCHARGED BY: Dr Porter REASON FOR ADMISSION: 73 years old female with past medical history of hypertension, hyperlipidemia, history of CVA with right sided weakness, depression presented as a direct admit with intractable right knee pain. Patient was scheduled for right knee laparoscopic surgery . Patient undergone right knee laparoscopic surgery and subsequently required admission for further management . CONSULTANTS: body straightener Dr. Fry orthopedic surgery [facility] COURSE: Patient admitted to medical surgical floor. Blood pressure was managed with multiple an antihypertensive medications, including calcium channel keli, JEREMY inhibitor, beta-keli, clonidine. Additional clonidine was on board as needed. 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 Lipid panel revealed elevated total cholesterol 214 ,elevated LDL 146 , stable triglyceride. Patient was provided with low-fat low-cholesterol diabetic diet. Statin was continued. Antiplatelet therapy continued. Blood sugar was managed with sliding scale of insulin. Blood sugar remained stable. Pain management was addressed, and pain was controlled. Patient was working with physical therapist. Fall precaution maintained. Bowel regimen instituted. Supportive care provided. Patient was not safe for discharge home, where she has many stairs. Short term placement was arranged to senior care facility for further rehabilitation with physical therapy. Patient was ready for transfer for continuation of care. FINAL DIAGNOSES: 1.Right Meniscus, medial, derangement: a/ Grade 2 to grade 3 chondral damage, patellofemoral compartment right knee b/ Grade 2 chondral damage, trochlear groove. c/. Grade 2 to grade 3 chondral damage, medial femoral condyle. d/ Posterior horn root tear. 2. Hypertension 3. Hyperlipidemia 4. History of CVA with right-sided weakness 5. Status post right knee laparoscopic surgery -Right knee arthroscopy and partial debridement posterior horn root tear. -Synovectomy medial and lateral patellofemoral compartment. -Chondroplasty, medial and patellofemoral compartment. DISCHARGE MEDICATIONS: See Medication Reconciliation list. DISCHARGE INSTRUCTIONS: Patient was discharged to the senior care facility. Follow up with medical doctor at the facility. I have been assigned to dictate discharge summary for this account. I was not involved in the patient's management. Nicole Meyer NP Feb 14, 2019 14:30
--- NOTE | 2019-02-14 17:02 | Cardiology Report ---
APPROVED REPORT EKG Measurement Heart [id number] RI [id number] Normal sinus rhythm T wave abnormality, consider anterior ischemia Abnormal ECG
--- NOTE | 2019-02-14 17:04 | Cardiology Report ---
APPROVED REPORT EKG Measurement Heart [id number] Normal sinus rhythm Nonspecific T wave abnormality Abnormal ECG
== END 2019-02-13 13:20 | DRG 488 ==
LOC: 3E 20:15
PROC: 0SBC4ZZ Excision of Right Knee Joint, Percutaneous Endoscopic Approach (ICD-10-PCS; principal; 2019-02-10 07:45)
DX: M23.221 Derangement of posterior horn of medial meniscus due to old tear or injury, right knee (principal); I69.351 Hemiplegia and hemiparesis following cerebral infarction affecting right dominant side; M17.11 Unilateral primary osteoarthritis, right knee; M25.361 Other instability, right knee; K21.9 Gastro-esophageal reflux disease without esophagitis; I10 Essential (primary) hypertension; Z88.8 Allergy status to other drugs, medicaments and biological substances; Z88.4 Allergy status to anesthetic agent; E11.9 Type 2 diabetes mellitus without complications; M19.90 Unspecified osteoarthritis, unspecified site; E78.5 Hyperlipidemia, unspecified; I25.10 Atherosclerotic heart disease of native coronary artery without angina pectoris
CPT/HCPCS: 36415; 80053; 80061; 80164; 81001; 81003; 82248; 82962; 83036; 85025; 85610; 85730; 87086; 93005; 94003; 94150; J1815; J2250; J2405

== ENCOUNTER → 2020-01-01 | Outpatient (CLI) | payer MEDICARE, MEDICAID ==
[~2020-01-01] MED LIST changes: +TRAMADOL HCL100 M2 ORAL
[2020-01-01 13:11] LABS: BASOPHILS % (AUTO) 3.1 % (0.0-2.0); EOSINOPHILS % (AUTO) 2.6 % (0.0-3.0); HEMATOCRIT 43.5 % (37.0-47.0); HEMOGLOBIN 14.3 G/DL (12.0-16.0); LYMPHOCYTES % (AUTO) 35.5 % (20.0-45.0); MEAN CORPUSCULAR VOLUME 102 FL (80-99); MONOCYTES % (AUTO) 7.4 % (1.0-10.0); NEUTROPHILS % (AUTO) 51.5 % (45.0-75.0); PLATELET COUNT 250 K/UL (150-450); RED BLOOD COUNT 4.28 M/UL (4.20-5.40); RED CELL DISTRIBUTION WIDTH 11.6 % (11.6-14.8)
[2020-01-01 13:29] LABS: ALANINE AMINOTRANSFERASE 28 U/L (12-78); ALBUMIN 3.8 G/DL (3.4-5.0); ALBUMIN/GLOBULIN RATIO 0.9 (1.0-2.7); ALKALINE PHOSPHATASE 102 U/L (46-116); ANION GAP 10 mmol/L (5-15); ASPARTATE AMINO TRANSFERASE 24 U/L (15-37); BILIRUBIN,TOTAL 0.8 MG/DL (0.2-1.0); BLOOD UREA NITROGEN 22 mg/dL (7-18); CALCIUM 8.9 MG/DL (8.5-10.1); CARBON DIOXIDE 26 MMOL/L (21-32); CHLORIDE 110 MMOL/L (98-107); CHOLESTEROL 229 MG/DL (< 200); HDL CHOLESTEROL 51 MG/DL (40-60); POTASSIUM 4.1 MMOL/L (3.5-5.1); SODIUM 146 MMOL/L (136-145); TRIGLYCERIDES 113 MG/DL (30-150)
== END | disposition home or self-care (01) ==
LOC: LAB 12:18
DX: I10 Essential (primary) hypertension (principal); E11.9 Type 2 diabetes mellitus without complications
CPT/HCPCS: 36415; 80053; 80061; 83036; 85025

== ENCOUNTER → 2020-03-25 | Outpatient (CLI) | payer MEDICARE, MEDICAID ==
[2020-03-25 12:40] LABS: BASOPHILS % (AUTO) 1.3 % (0.0-2.0); EOSINOPHILS % (AUTO) 1.8 % (0.0-3.0); LYMPHOCYTES % (AUTO) 28.3 % (20.0-45.0); MEAN CORPUSCULAR VOLUME 102 FL (80-99); MONOCYTES % (AUTO) 6.5 % (1.0-10.0); NEUTROPHILS % (AUTO) 62.1 % (45.0-75.0); PLATELET COUNT 262 K/UL (150-450); RED BLOOD COUNT 4.13 M/UL (4.20-5.40); RED CELL DISTRIBUTION WIDTH 12.5 % (11.6-14.8); WHITE BLOOD COUNT 5.3 K/UL (4.8-10.8)
[2020-03-25 13:21] LABS: ALANINE AMINOTRANSFERASE 27 U/L (12-78); ALBUMIN 3.9 G/DL (3.4-5.0); ALBUMIN/GLOBULIN RATIO 0.9 (1.0-2.7); ALKALINE PHOSPHATASE 115 U/L (46-116); ANION GAP 7 mmol/L (5-15); ASPARTATE AMINO TRANSFERASE 27 U/L (15-37); BLOOD UREA NITROGEN 17 mg/dL (7-18); CALCIUM 9.4 MG/DL (8.5-10.1); CARBON DIOXIDE 27 MMOL/L (21-32); CHLORIDE 107 MMOL/L (98-107); CHOLESTEROL 235 MG/DL (< 200); CREATININE 0.9 MG/DL (0.55-1.30); HDL CHOLESTEROL 48 MG/DL (40-60); SODIUM 141 MMOL/L (136-145); TRIGLYCERIDES 131 MG/DL (30-150)
== END | disposition home or self-care (01) ==
LOC: LAB 11:17
DX: R03.0 Elevated blood-pressure reading, without diagnosis of hypertension (principal)
CPT/HCPCS: 36415; 80053; 80061; 83036; 84443; 85025

== ENCOUNTER → 2020-06-23 | Outpatient (CLI) | payer MEDICARE, MEDICAID ==
[2020-06-23 10:42] LABS: BASOPHILS % (AUTO) 1.8 % (0.0-2.0); EOSINOPHILS % (AUTO) 1.7 % (0.0-3.0); HEMATOCRIT 48.1 % (37.0-47.0); LYMPHOCYTES % (AUTO) 27.6 % (20.0-45.0); MEAN CORPUSCULAR VOLUME 104 FL (80-99); MONOCYTES % (AUTO) 9.7 % (1.0-10.0); NEUTROPHILS % (AUTO) 59.2 % (45.0-75.0); PLATELET COUNT 237 K/UL (150-450); RED BLOOD COUNT 4.64 M/UL (4.20-5.40); RED CELL DISTRIBUTION WIDTH 11.9 % (11.6-14.8); WHITE BLOOD COUNT 3.6 K/UL (4.8-10.8)
[2020-06-23 11:11] LABS: ALANINE AMINOTRANSFERASE 31 U/L (12-78); ALBUMIN 4.2 G/DL (3.4-5.0); ALKALINE PHOSPHATASE 123 U/L (46-116); ANION GAP 9 mmol/L (5-15); ASPARTATE AMINO TRANSFERASE 25 U/L (15-37); BLOOD UREA NITROGEN 13 mg/dL (7-18); CALCIUM 9.9 MG/DL (8.5-10.1); CARBON DIOXIDE 28 MMOL/L (21-32); CHLORIDE 108 MMOL/L (98-107); CHOLESTEROL 250 MG/DL (< 200); CREATININE 0.9 MG/DL (0.55-1.30); HDL CHOLESTEROL 50 MG/DL (40-60); POTASSIUM 3.7 MMOL/L (3.5-5.1); SODIUM 145 MMOL/L (136-145); TRIGLYCERIDES 123 MG/DL (30-150)
== END | disposition home or self-care (01) ==
LOC: LAB 08:32
DX: R03.0 Elevated blood-pressure reading, without diagnosis of hypertension (principal)
CPT/HCPCS: 36415; 80053; 80061; 82607; 82746; 84443; 85025